=== PATIENT | male | born 1950 | race Caucasian/White ===

== ENCOUNTER 2017-01-21 22:54 | Observation (INO) | payer MEDICARE, BC ==
[2017-01-21] MEDS ORDERED: Aspirin Low Dose CHEW TAB* 81 MG PO ONE (23:03)
[2017-01-21 23:24] LABS: Hematocrit 44 % (42-52); Hemoglobin 14.8 g/dl (14.0-18.0); Mean Corpuscular HGB Conc 34 g/dl (31-36); Mean Corpuscular Hemoglobin 31 pg (27-31); Mean Corpuscular Volume 92 fL (80-94); Mean Platelet Volume 9 um3 (7.4-10.4); Red Blood Count 4.73 10^6/ul (4.0-5.4); Red Cell Distribution Width 13 % (10.5-15); White Blood Count 26.2 10^3/ul (3.5-10.8)
[2017-01-21 23:25] LABS: Add Diff/Slide Review? Slide Review Added; Comments Flag Yes
--- NOTE | 2017-01-21 23:28 | ED ---
Estella Gore Thomas, scribed for Jc Trinidad MD on 01/21/17 at 2324 . Syncope/Near Syncope - HPI Summary HPI Summary: Pt is a 66 y/o M BIBA c/o syncope. He did not have near-syncope prior to the syncopal episode and he denies a history of syncope. He additionally c/o hand pain and R foot pain. He denies CP, sensations of pressure and tightness. Per EMS, in the ambulance he had elevation and depression. He states that he didn t feel well all day. [employer] he took 350 mg of Trazodone. He takes many other medications. Per EMS and EMR, his PMHx includes occluded aortic valve, ankylosing spondylosis, LVH, HTN, RBBB, and sleeep apnea. - History Of Current Complaint Chief Complaint: EDChestPainROMI Time Seen by Provider: 01/21/17 23:00 Hx Obtained From: Patient, EMS Onset/Duration: Sudden Onset Context: Loss Of Consciousness Aggravating Factor(s): Nothing Alleviating Factor(s): Nothing Associated Signs And Symptoms: Other - POS: hand pain, R foot pain ;NEG: CP, sensation of presure or tightness - Allergies/Home Medications Allergies/Adverse Reactions: Allergies Allergy/AdvReac Type Severity Reaction Status Date / Time No Known Allergies Allergy Verified 09/02/16 08:36 Home Medications: Home Medications Atorvastatin* [Lipitor*] 20 mg PO DAILY 01/22/17 [History Confirmed 01/22/17] Metoprolol Succinate [Toprol Xl] 25 mg PO 01/22/17 [History] PMH/Surg Hx/FS Hx/Imm Hx Previously Healthy: No Cardiovascular History: Reports: Hx Hypertension - ON MEDICATION FOR GI History: Reports: Hx Gastroesophageal Reflux Disease - HX OF NONE SINCE 2006 , Hx Gastrointestinal Bleed, Hx Ulcer Musculoskeletal History: Reports: Other Musculoskeletal History - SPONDOLYTIS Sensory History: Reports: Hx Contacts or Glasses Denies: Hx Hearing Aid Opthamlomology History: Reports: Hx Contacts or Glasses - Surgical History Surgery Procedure, Year, and Place: 2 LEFT HAND SURGERIES. TONSILS. CORRECTIVE EYE SURGERY A CHILD. 2006- ECG- BLEEDING ULCER FOUND Hx Anesthesia Reactions: No Infectious Disease History: Denies: Traveled Outside the [place] in Last 30 Days - Family History Known Family History: Positive: Other - No Hx of syncope - Social History Alcohol Use: Occasionally Substance Use Type: Reports: None Smoking Status (MU): Unknown if Ever Smoked Amount Used/How Often: 3/4 PPD X 30 YEARS Have You Smoked in the Last Year: Yes Review of Systems Constitutional: Negative Eyes: Negative ENT: Negative Cardiovascular: Negative, Other - NEG: feelings of pressure or tightness Negative: Chest Pain Respiratory: Negative Gastrointestinal: Negative Genitourinary: Negative Positive: Other - POS: hand pain, R foot pain Skin: Negative Positive: Syncope - sudden, no near-syncope Psychological: Normal All Other Systems Reviewed And Are Negative: Yes Physical Exam Triage Information Reviewed: Yes Vital Signs On Initial Exam: Initial Vitals Temp Pulse Resp BP Pulse Ox 97.9 F 80 18 104/51 94 01/21/17 22:54 01/21/17 22:54 01/21/17 22:54 01/21/17 22:54 01/21/17 22:54 Vital Signs Reviewed: Yes Appearance: Positive: Ill-Appearing, Pain Distress - mild discomfort Skin: Positive: Warm Head/Face: Positive: Normal Head/Face Inspection Eyes: Positive: DEUCE ENT: Positive: Hearing grossly normal Respiratory/Lung Sounds: Positive: Clear to Auscultation, Breath Sounds Present Cardiovascular: Positive: RRR, Murmur - 3/6 harsh systolic murmur Abdomen Description: Positive: Nontender, Soft Bowel Sounds: Positive: Present Neurological: Positive: Alert, Oriented to Person Place, Time, Other - 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 Psychiatric: Positive: Affect/Mood Appropriate Diagnostics - Vital Signs Vital Signs Temp Pulse Resp BP Pulse Ox 01/21/17 23:20 65 26 104/51 100 01/21/17 23:08 69 97 01/21/17 22:54 97.9 F 80 18 104/51 94 - Laboratory Lab Results: Lab Results 01/21/17 Range/Units 23:00 WBC 26.2 H (3.5-10.8) 10^3/ul RBC 4.73 (4.0-5.4) 10^6/ul Hgb 14.8 (14.0-18.0) g/dl Hct 44 (42-52) % MCV 92 (80-94) fL MCH 31 (27-31) pg MCHC 34 (31-36) g/dl RDW 13 (10.5-15) % Plt Count 213 (150-450) 10^3/ul MPV 9 (7.4-10.4) um3 Neut % (Auto) 82.1 (38-83) % Lymph % (Auto) 7.4 L (25-47) % Loíza % (Auto) 7.6 (1-9) % Eos % (Auto) 2.5 (0-6) % Baso % (Auto) 0.4 (0-2) % Absolute Neuts (auto) 21.5 H (1.5-7.7) 10^3/ul Absolute Lymphs (auto) 1.9 (1.0-4.8) 10^3/ul Absolute Monos (auto) 2.0 H (0-0.8) 10^3/ul Absolute Eos (auto) 0.7 H (0-0.6) 10^3/ul Absolute Basos (auto) 0.1 (0-0.2) 10^3/ul Absolute Nucleated RBC 0.02 10^3/ul Nucleated RBC % 0.1 Result Diagrams: 01/21/17 23:00 01/21/17 23:00 Lab Statement: Any lab studies that have been ordered have been reviewed, and results considered in the medical decision making process. - Radiology CXR Xray Interpretation: Positive (See Comments) - cardiomegaly Radiology Interpretation Completed By: ED Physician - CT CT Head CT Interpretation: No Acute Changes - No mass effect or intracranial hemorrhage. CT Interpretation Completed By: Radiologist - EKG 23:03 Cardiac Rate: NL - 71 EKG Interpretation: SR. LVH. ST depressions Re-Evaluation - Re-Evaluation First Eval Comment: results d/w family, d/w hospitalist Course/Dx - Diagnoses Provider Diagnoses: Syncope - Physician Notifications Discussed Care of Patient With: Vinay Ramirez Time Discussed With Above Provider: 01:45 Instructed by Provider To: Admit As Inpatient - Discussed patient - Critical Care Time Critical Care Time: 75-104 min Discharge - Discharge Plan Condition: Fair Disposition: ADMITTED TO [facility] documentation as recorded by the Estella andrews Thomas accurately reflects the service I personally performed and the decisions made by me, Jc Trinidad MD.
[2017-01-21 23:32] LABS: Albumin 3.8 g/dL (3.2-5.2); BUN/Creatinine Ratio 23.8 (8-20); Calcium 9.7 mg/dL (8.6-10.3); EGFR African American 117.6 (>60); EGFR Non-African American 91.4 (>60); Globulin 2.6 g/dL (2-4); Magnesium 1.8 mg/dL (1.9-2.7); Potassium 3.4 mmol/L (3.5-5.0); Total Bilirubin 0.9 mg/dL (0.2-1.0); Total Protein 6.4 g/dL (6.4-8.9)
[2017-01-21 23:38] LABS: Troponin I 0.04 ng/mL (<0.04)
[2017-01-21] MEDS ORDERED: Iohexol 350* (CONTRAST) 500 ML MDV IV ONE (23:41)
[2017-01-22] MEDS ORDERED: traZODone TAB* 50 MG TAB PO PRN (01:43)
[2017-01-22] MEDS ORDERED: Cholecalciferol TAB* 1000 UNITS PO PRN (01:43)
[2017-01-22] MEDS ORDERED: NS 0.9% 1000 ML* 1,000 ML IV SCH ×2 (02:00→03:00)
[2017-01-22 03:50] LABS: Urine Bacteria Absent (Absent); Urine Bilirubin Negative (Negative); Urine Glucose Negative (Negative); Urine Nitrite Positive (Negative)
[2017-01-22] MEDS ORDERED: Heparin VIAL(*) 5000 UNITS/ML VIAL (FIVE THOUSAND) SUBCUT SCH (06:00)
[2017-01-22] MEDS ORDERED: Dexamethasone IV* 4 MG/ML 1 ML (4 MG) IV SLOW PU SCH (06:00)
[2017-01-22] MEDS: Morphine INJ* 2 MG/ML 1 ML SYRINGE IV PRN ×2 (06:42→11:03)
--- NOTE | 2017-01-22 07:45 | RAD ---
HISTORY: Syncope COMPARISONS: December 28, 2013 VIEWS:1: Single frontal portable view of the chest at 10:07 PM FINDINGS: LINES AND TUBES: None. CARDIOMEDIASTINAL SILHOUETTE: The cardiomediastinal silhouette is normal for portable technique. PLEURA: The costophrenic angles are sharp. No pleural abnormalities are noted. LUNG PARENCHYMA: The lungs are clear. ABDOMEN: The upper abdomen is clear. There is no subphrenic gas. BONES AND SOFT TISSUES: No bone or soft tissue abnormalities are noted. IMPRESSION: NO ACTIVE CARDIOPULMONARY DISEASE.
--- NOTE | 2017-01-22 07:47 | RAD ---
HISTORY: Weakness and numbness in right lower extremity COMPARISONS: None TECHNIQUE: Multiple contiguous axial CT scans were obtained of the head without intravenous contrast. Evaluation of the frontal sinuses and orbits is Limited by the [id number] FINDINGS: HEMORRHAGE/INFARCT: There is no hemorrhage or acute infarct. MASSES/SHIFT: There is no mass or shift. EXTRA-AXIAL SPACES: There are no extra-axial fluid collections. SULCI AND VENTRICLES: The sulci and ventricles are normal in size and position for the patient's stated age. CEREBRUM: There is mild hypoattenuation of the periventricular and subcortical white matter. BRAINSTEM: There are no focal parenchymal abnormalities. CEREBELLUM: There are no focal parenchymal abnormalities. VESSELS: The vessels are grossly normal. PARANASAL SINUSES: There is mixed retention cyst versus polypoid mucosal thickening of the right maxillary sinus. Evaluation of the frontal sinuses is limited by field of view ORBITS: Limited grossly normal BONES AND SOFT TISSUE: No bone or soft tissue abnormalities are noted. OTHER: None IMPRESSION: NO ACUTE INTRACRANIAL PATHOLOGY. CHRONIC SMALL VESSEL ISCHEMIC CHANGES.
--- NOTE | 2017-01-22 07:53 | RAD ---
HISTORY: Syncope, elevated d-dimer COMPARISONS: CT of the chest dated November 11, 2007 TECHNIQUE: Multiple contiguous axial CT scans of the chest were obtained after the administration of nonionic intravenous contrast, timed to the pulmonary arterial phase of contrast enhancement.. Coronal and sagittal multiplanar reformations are also submitted for review. FINDINGS: NECK AND THYROID: The lower neck and thyroid are unremarkable. CHEST WALL: There is no lower cervical, axillary, or supraclavicular lymphadenopathy by size criteria. HEART AND PERICARDIUM: The heart is unremarkable. AORTA AND PULMONARY VASCULATURE: There is no pulmonary arterial filling defect to suggest pulmonary embolism. There is no linear filling defect within the aorta to suggest aortic dissection. MEDIASTINUM: There is no mediastinal lymphadenopathy by size criteria. REN: There is no hilar lymphadenopathy by size criteria. AIRWAY AND ESOPHAGUS: There is circumferential mucosal thickening versus paraesophageal soft tissue density of the upper third of the esophagus LUNG PARENCHYMA: There is calcified granuloma of the right lower lobe. There is subsegmental atelectasis of the left lower lobe PLEURA: No pleural abnormalities are noted. UPPER ABDOMEN: The upper abdomen is unremarkable. BONES AND SOFT TISSUES: Degenerative changes are noted. There are findings consistent with tonsillitis. There is a fracture through C6-C7, further described on the CT of the cervical spine. There is a fracture through the inferior endplate of T9 extending into the intervertebral disc space at T9-T10 into the posterior elements of T9 with mild widening of the T9-T10 intervertebral disc space OTHER: None. IMPRESSION: 1. NO PULMONARY ARTERIAL FILLING DEFECT TO SUGGEST PULMONARY EMBOLUS. 2. NOTED ON THE CT OF THE CERVICAL SPINE, THERE IS A FRACTURE THROUGH C6-C7 FURTHER DESCRIBED ON THAT REPORT. 3. THERE ARE FINDINGS CYST WITH HYPEREXTENSION FRACTURE THROUGH T9-T10 DESCRIBED ABOVE. 4. ANKYLOSING SPONDYLITIS. 5. THERE IS FOCAL MUCOSAL THICKENING VERSUS PARAESOPHAGEAL SOFT TISSUE DENSITY OF THE UPPER THIRD ESOPHAGUS. THE DIFFERENTIAL INCLUDES NEOPLASM. RECOMMEND CONSIDERATION OF CORRELATION WITH DIRECT VISUALIZATION. A PRELIMINARY REPORT WAS MADE BY DR. CASEY AT APPROXIMATELY 12:52 AM ON JANUARY 22, 2017. FINDINGS WERE FURTHER DISCUSSED WITH DR. SOARES BY DR. GARCÍA AT APPROXIMATELY 7:49 AM ON JANUARY 22, 2017
[2017-01-22] MEDS ORDERED: ZOSYN 3.375 GM Q8H per EXTENDED INFUSION IVPB SCH ×2 (08:00)
[2017-01-22 08:37] LABS: Hematocrit 43 % (42-52); Hemoglobin 14.3 g/dl (14.0-18.0); Mean Corpuscular HGB Conc 34 g/dl (31-36); Mean Corpuscular Hemoglobin 31 pg (27-31); Mean Corpuscular Volume 93 fL (80-94); Mean Platelet Volume 8 um3 (7.4-10.4); Red Blood Count 4.59 10^6/ul (4.0-5.4); Red Cell Distribution Width 14 % (10.5-15); White Blood Count 23.7 10^3/ul (3.5-10.8)
--- NOTE | 2017-01-22 08:37 | RAD ---
HISTORY: Ankylosing Spondylitis, status post fall COMPARISONS: None TECHNIQUE: Multiple contiguous axial CT scans were obtained of the cervical spine without intravenous contrast, with coronal and sagittal multiplanar reformations. FINDINGS: BRAIN: The visualized brain is unremarkable CENTRAL CANAL: Evaluation is limited on CT technique; there is no appreciable canalicular mass. There is a probable small amount of epidural hemorrhage at the site of fracture described below ALIGNMENT: The alignment is normal, without subluxation or dislocation. VERTEBRAL BODIES: There is ossification of the anterior syndesmophytes consistent with the history of ankle is and spondylitis. There is a fracture that extends through the superior endplate and posterior elements of C7 with widening of the C6-C7 intervertebral disc space consistent with a hyperextension injury. The fracture also extends into the articular facet of C6 on the left JOINTS: There is partial fusion across the facet joints. There is osteoarthritis of the atlantoaxial articulation MUSCULATURE: Unremarkable INTERVERTEBRAL DISCS: There is diffuse loss of intervertebral disc height. AXIAL IMAGES: On axial images, there is no significant osseous neural foraminal narrowing or central canal stenosis. SOFT TISSUES: The visualized soft tissues of the neck are unremarkable. The prevertebral fat stripe is preserved. OTHER: None. IMPRESSION: FINDINGS CONSISTENT WITH ANKYLOSING SPONDYLOSIS. THERE IS A FRACTURE THAT EXTENDS THROUGH THE SUPERIOR ENDPLATE AND POSTERIOR LIPS OF C7, AND INTO THE ARTICULAR FACET OF C6, WITH WIDENING OF INTERVERTEBRAL DISC SPACE WITH HYPEREXTENSION INJURY. THERE IS A SMALL AMOUNT OF EPIDURAL HEMORRHAGE AT THIS LEVEL PRELIMINARY FINDINGS WERE DISCUSSED WITH DR. VILLATORO, BY DR. CASEY AT APPROXIMATELY 3:54 AM ON JANUARY 22, 2017. FINDINGS WERE FURTHER DISCUSSED WITH DR. MARROQUIN BY DR. GARCÍA AT APPROXIMATELY 8:31 AM ON JANUARY 22, 2017.
[2017-01-22 08:40] LABS: Add Diff/Slide Review? Slide Review Added; Comments Flag Yes
[2017-01-22 08:52] LABS: BUN/Creatinine Ratio 21.5 (8-20); Calcium 9.3 mg/dL (8.6-10.3); EGFR African American 126.2 (>60); EGFR Non-African American 98.1 (>60); Potassium 3.9 mmol/L (3.5-5.0)
[2017-01-22] MEDS ORDERED: Atorvastatin* 20 MG TAB PO SCH (09:00)
[2017-01-22] MEDS ORDERED: Hydrochlorothiazide TAB* 25 MG PO SCH (09:00)
[2017-01-22] MEDS ORDERED: Diltiazem CD CAP* 180 MG PO SCH (09:00)
[2017-01-22] MEDS ORDERED: Metoprolol Succinate XL TAB* 25 MG PO SCH (09:00)
[2017-01-22] MEDS ORDERED: Losartan TAB* 25 MG PO SCH (09:00)
[2017-01-22 09:06] LABS: Troponin I 0.04 ng/mL (<0.04)
[2017-01-22 11:33] VITALS: BP 141/65
--- NOTE | 2017-01-22 23:40 | HP ---
CC: Yony Denney MD* HISTORY AND PHYSICAL: DATE OF ADMISSION: 01/22/17 PRIMARY CARE PHYSICIAN: Yony Denney MD CHIEF COMPLAINT: "I fell and passed out." HISTORY OF PRESENT ILLNESS: The patient is a 66-year-old gentleman who presented to [facility] saying that he was feeling poorly all day. He said he had to urinate many times in the day and was painful. When he tried to urinate, only few drops came out. Furthermore, he was incontinent about twice. He went home, took trazodone to help him sleep and about 10 minutes later, he passed out, fell backwards and hit his head. He felt his neck snap and it heard after that. Now he says his right side is very weak. He has trouble using his hands to grasp and his right leg and right arm are numb. He has never had this before despite falling on it before. His sons also think he has slurred speech at this time. In the ER, the patient was evaluated. A CAT scan was negative and a CTA for PE was negative. We did put a cervical collar on the patient as well. Before he went to the floor, he had a CAT scan of his neck, which unfortunately did show a fracture of the calcified anterior longitudinal ligament. The patient was already admitted and we are attempting to transfer the patient based on our conversation with Dr. Quinn, [facility]. PAST MEDICAL HISTORY: Significant for hypertension, ankylosing spondylitis, spermatocele, basal cell carcinoma, squamous cell carcinoma, right bundle- branch block, obstructive sleep apnea but did not tolerate the CPAP. CURRENT MEDICATIONS: Include: 1. Lipitor 20 mg daily. 2. Hydrochlorothiazide 25 mg daily. 3. Diltiazem 360 mg daily. 4. Cholecalciferol 5000 units daily. 5. Trazodone 50 mg at bedtime. 6. Cialis 20 mg daily as needed. 7. Losartan 100 mg daily. 8. Metoprolol succinate 25 mg p.o. daily. FAMILY HISTORY: Mother at 64 of cancer. Father at 58 of liver cancer. SOCIAL HISTORY: He smokes half a pack to 1 pack a day for many years. No alcohol or recreational drug use. 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 He is . He has 3 children. His , Kim Rader is his healthcare proxy. REVIEW OF SYSTEMS: A 14-point review of systems was completed with the patient. All pertinent positives and negative are in the history of present illness, otherwise it is negative. PHYSICAL EXAMINATION GENERAL: Pleasant gentleman lying in bed, in no acute distress. VITAL SIGNS: Temperature 97.8 degrees, heart rate 72 beats per minute, respiratory rate 25 breaths per minute, pulse ox 98%, blood pressure 129/81. HEENT: Normocephalic and atraumatic. Pupils are equal, round and reactive to light. NECK: The patient does not want to move it because it is quite painful. CHEST: Clear to auscultation and percussion bilaterally. CARDIOVASCULAR: S1, S2 appreciated. A 3/6 systolic murmur best heard at the right sternal border. ABDOMEN: Positive bowel sounds in all 4 quadrants. Soft, nontender, nondistended. EXTREMITIES: No cyanosis, clubbing, or edema. +2 pulse bilaterally. NEUROLOGIC: He is alert and oriented x3. He has got 2/5 motor strength in his right upper extremity, 4/5 motor strength in his right lower extremity. He has got poor hand grasp. He has no evidence of facial droop. He has got no pronator drift. SKIN: No distinct rashes. No abnormalities. DIAGNOSTIC STUDIES/LAB DATA: White count 26.2, hemoglobin 14.8, hematocrit 44 , and platelets 213. Sodium 131, potassium 3.4, chloride 101, CO2 26, BUN 20, creatinine 0.84, glucose 139. Troponin 0.04. D-dimer is greater than 150. Urinalysis shows +3 wbc's, +2 leukocyte esterase. His chest x-ray was interpreted by Radiology as no active cardiopulmonary disease. His brain CT was interpreted by Radiology as, impression, no acute intracranial pathology, chronic small vessel ischemic changes. CTA of the chest shows no pulmonary artery dissection or pulmonary embolus is noted. CT of the cervical spine, there is fracture through C6-C7 further described in this report. There are findings consistent with hyperextension fracture through T9-T10 as described above, ankylosing spondylitis. There is focal mucosal thickening versus paraesophageal soft tissue density of the upper third of the esophagus. Differential includes neoplasm, recommended consideration of correlation with flexible visualization. Cervical spine CT, the night radiologist read this as ankylosing spondylitis fracture, the calcified anterior longitudinal ligament of C6-C7 with widening of the anterior disk space consistent with hyperextension injury, nondisplaced fracture throughout the articular facet of C6 on the left. EKG shows normal sinus rhythm at 71 beats per minute. Normal axis. He has got ST depressions in V5 and V6. ST elevations in V2 through V4. ASSESSMENT AND PLAN: 1. Cervical spine fracture. I spoke to Dr. Quinn who reviewed with films and agreed the patient needed to go a center that could provide more resources than his. Therefore, I am attempting to transfer the patient to [facility]. We also started the patient on Decadron 4 mg IV q.6 as well as morphine for pain. He will continue to have the cervical collar and be on bedrest. 2. Prostatitis/urinary tract infection. The patient is on Zosyn. White count was over 26,000, but he is afebrile. Monitor CBC and culture results. 3. Ankylosing spondylitis, see above. Not currently on any regular medications for this. Monitor. 4. Hypertension, good control. Continue current regimen. 5. Thickening of the esophagus on CAT scan that should be followed up by endoscopy, but does not needed to be adjusted immediately. 6. FEN: NPO in case of surgery. 7. DVT prophylaxis: Currently on heparin. 8. The patient is a full code. TIME SPENT: Over 75 minutes was spent on this H and P, more than 40 minutes of which was spent in direct [id number] contact with the patient in evaluation, physical exam, counseling, and coordination of care. ADDENDUM: I spoke to Dr. Payton at [facility] who is accepting the patient to the hospitalist service with "Dr. Mancilla" of Orthopedic Spine consulting. [id number]/[facility] #: [id number] [facility]
== END 2017-01-22 11:30 | disposition short-term general hospital (02) ==
LOC: ED 22:54 → MEDTELE 01-22 01:58
PROVIDERS: ADMIT Internal Medicine; ATTEND Hospitalist
DX: R55 Syncope and collapse (principal); I10 Essential (primary) hypertension; G47.33 Obstructive sleep apnea (adult) (pediatric); F17.200 Nicotine dependence, unspecified, uncomplicated; M79.643 Pain in unspecified hand; M79.671 Pain in right foot; M45.9 Ankylosing spondylitis of unspecified sites in spine
CPT/HCPCS: 36415; 70450; 71010; 71275; 72125; 80048; 80053; 81003; 81015; 82550; 82553; 83605; 83721; 83735; 83874; 83880; 84484; 85025; 85379; 85610; 85730; 86850; 86900; 86901; 87077; 87086; 87186; 93005; 99285; A9270-GY; G0378; J1100; J1644; J2270; J2543; Q9967

== ENCOUNTER 2017-01-27 11:27 | Inpatient (IN) | payer MEDICARE, BC ==
[2017-01-27] MEDS ORDERED: Magnesium Hydroxide LIQ* 30 ML UDC PO PRN (16:42)
[2017-01-27] MEDS ORDERED: Senna TAB PO PRN (16:42)
[2017-01-27] MEDS: Cephalexin CAP* 500 MG PO SCH (17:24)
[2017-01-27] MEDS: Atorvastatin* 20 MG TAB PO SCH (17:24)
[2017-01-27] MEDS: Losartan TAB* 25 MG PO SCH (17:24)
[2017-01-27] MEDS: oxyCODONE TAB* 5 MG TAB PO PRN (20:53)
[2017-01-27] MEDS: Docusate CAP* 100 MG PO SCH (20:53)
--- NOTE | 2017-01-27 22:58 | HP ---
ADMISSION HISTORY AND PHYSICAL: DATE OF ADMISSION: 01/27/17 REASON FOR ADMISSION: Central cord syndrome. HISTORY OF PRESENT ILLNESS: Dalton Rader is a 66-year-old male. The patient has a known history of ankylosing spondylitis as well as hypertension. He was not feeling well on 01/21/17. Apparently, he had a urinary tract infection. To help him sleep, he took 2 trazodone. However, the patient following the trazodone apparently had a syncopal event and fell to the floor. He was found on the floor by his . She called 911 and he was brought to the hospital. He was initially evaluated and a decision was made to admit the patient. He had a CAT scan of his brain as well as a CTA of his chest. After admission, the patient was noted to have had a CAT scan of his cervical spine. The CAT scan of his cervical spine showed a nondisplaced fracture of the right articular facet of C6. He was found to have right hand weakness. He was put in a cervical collar. Decision was made to transfer the patient to [facility] for surgical evaluation. He was evaluated by the orthopedic spine service. He was taken to the operating room on 01/22/17 for a posterior spinal fusion of C5 through T1. He was treated with Zosyn for his urinary tract infection and then transitioned to Augmentin. Prior to going to the OR, the patient did have an MRI of his cervical spine as well as his thoracic spine. On MRI of his cervical spine, he was noted to have an anterior epidural hematoma formation through beneath the posterior longitudinal ligament extending from C5 to C7. The spinal cord showed hyperintense signal intensity suggestive of cord contusion. He was also noted to have a disruption on MRI of his thoracic spine. He was noted to have disruption of the ossified anterior longitudinal ligament at T9-10. The patient, as mentioned, was taken to the operating room and underwent a posterior spinal fusion from C5 to T1. He also underwent a posterior fixation of the spine at T8 through T11. Postoperatively, the orthopedic spine service did not want him on chemo prophylaxis due to his hematoma noted on MRI. The patient had right-sided weakness, more significant in the arm than in the leg. He was diagnosed with central cord syndrome. He was felt to have physical therapy and occupational therapy needs. He is now being admitted for inpatient rehab facility so that he might return to independent living. PAST MEDICAL HISTORY: Significant for coronary artery disease. He had a cardiac catheterization in August of this year. He was noted to have aortic stenosis. In addition, he was noted to have total occlusion of the right coronary artery. He was not stented because there were collaterals from the left circulation, so it was felt that he did not need to be stented. The patient also has a history of ankylosing spondylitis. He has a history of COPD , history of hypertension, and obstructive sleep apnea. He wears a CPAP at night. CURRENT MEDICATIONS: Include: 1. Lipitor. 2. Cardizem CD. 3. He is on hydrochlorothiazide. 4. Cozaar. 5. Toprol XL. 6. Oxycodone for pain control. 7. He is also on Keflex for his urinary tract infection. ALLERGIES: The patient has no known drug allergies. SOCIAL HISTORY: He does continue to smoke. He smokes half a pack a day. Denies any significant alcohol use. Lives with his in a 2-story house. He can stay on the first floor if he needs to. REVIEW OF SYSTEMS: No current shortness of breath or chest pain. PHYSICAL EXAMINATION VITAL SIGNS: The patient's temperature is 98.6, blood pressure is 128/52, pulse 71, respirations 16. HEENT: His extraocular movements are intact. NECK: He has a bandage over his suture line on the back of his neck. LUNGS: Sound clear to auscultation bilaterally. HEART: Sounds are regular. S1, S2 are audible. ABDOMEN: Soft and nontender. EXTREMITIES: His extremities, the patient has somewhat decreased muscle tone in his right upper extremity; otherwise, muscle bulk and tone are normal. His peripheral pulses are intact. No edema is noted. NEUROLOGIC: The patient was awake, alert, oriented. He did have decreased recall of the events regarding his fall. 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 The patient's biceps is about 3+/5, triceps are about 5/5, deltoids are about 4/5. His right lower extremity, hip flexes about 4/5, otherwise 5/5, left side is 5/5. FUNCTIONAL EXAM: The patient transfers with minimal amount of assistance. ASSESSMENT: Central cord syndrome/C5 MORAIMA D Spinal Cord Injury PLAN: We are going to integrate him into comprehensive and therapeutic rehab program with the following goals: 1. Physical Therapy will work with the patient. They are going to work on functional transfer training, ambulation training with a walker. 2. Occupational Therapy will see the patient and work on his activities of daily living including toileting and toilet transfers. 3. SUSANNA stockings for DVT prophylaxis. 4. Adequate analgesia. 5. His bowels will be regulated. 6. Continue beta-sonya and Cardizem for coronary artery disease and aortic stenosis. 7. Advanced directives: The patient is a full code. 8. Family training as appropriate. 9. Home with appropriate services. ESTIMATED LENGTH OF STAY: 10 to 12 days. [id number]/[facility] #: [id number] JYOTSNA
[2017-01-27] MEDS: Acetaminophen TAB* 325 MG PO PRN (23:34)
[2017-01-28] MEDS: oxyCODONE TAB* 5 MG TAB PO PRN ×4 (01:02→19:19)
[2017-01-28] MEDS: Cephalexin CAP* 500 MG PO SCH ×3 (01:02→17:06)
[2017-01-28] MEDS: Hydrochlorothiazide TAB* 25 MG PO SCH (08:05)
[2017-01-28] MEDS: Metoprolol Succinate XL TAB* 25 MG PO SCH (08:05)
[2017-01-28] MEDS: Docusate CAP* 100 MG PO SCH ×2 (08:06→21:33)
[2017-01-28] MEDS: Diltiazem CD CAP* 180 MG PO SCH (08:06)
[2017-01-28 08:46] LABS: Hematocrit 37 % (42-52); Hemoglobin 12.3 g/dl (14.0-18.0); Mean Corpuscular HGB Conc 33 g/dl (31-36); Mean Corpuscular Hemoglobin 31 pg (27-31); Mean Corpuscular Volume 94 fL (80-94); Mean Platelet Volume 8 um3 (7.4-10.4); Red Blood Count 3.92 10^6/ul (4.0-5.4); Red Cell Distribution Width 13 % (10.5-15); White Blood Count 22.2 10^3/ul (3.5-10.8)
[2017-01-28 09:02] LABS: Albumin 3.3 g/dL (3.2-5.2); BUN/Creatinine Ratio 21.6 (8-20); Calcium 9.6 mg/dL (8.6-10.3); EGFR African American 136.1 (>60); EGFR Non-African American 105.8 (>60); Globulin 2.5 g/dL (2-4); Potassium 4.1 mmol/L (3.5-5.0); Total Bilirubin 0.8 mg/dL (0.2-1.0); Total Protein 5.8 g/dL (6.4-8.9)
--- NOTE | 2017-01-28 12:07 | RAD ---
HISTORY: Leukocytosis COMPARISONS: January 21, 2017 VIEWS: 4: Frontal dual-energy and lateral views of the chest. FINDINGS: CARDIOMEDIASTINAL SILHOUETTE: The cardiomediastinal silhouette is normal. REN: The ren are normal. PLEURA: There is minimal blunting of the right costophrenic angle. LUNG PARENCHYMA: There is hyperinflation ABDOMEN: The upper abdomen is clear. There is no subphrenic gas. BONES AND SOFT TISSUES: There is post surgical change of the spine OTHER: None. IMPRESSION: 1. TRACE RIGHT PLEURAL EFFUSION. 2. HYPERINFLATION SUGGESTIVE OF COPD.
--- NOTE | 2017-01-28 12:08 | CONSULT ---
Subjective Date of Service: 01/28/17 Interval History: Mr. Rader is a 66 yo male who sustained a fall on 01/21/17 secondary to a syncopal episode; patient also had a UTI that was noted. A CT scan of the cervical spine revealed a nondisplaced fx of the right articular facet of C6; patient had accompanying right hand weakness. He was transferred to [facility] and underwent a posterior spinal fusion of C5 through T1 as well as a posterior fixation of the spine at T8 through T11 (ossified anterior longitudinal ligament seen at T9-10 on MRI). He received treatment for his UTI with Zosyn and then Augmentin. Patient did not receive DVT prophylaxis secondary to anterior epidural hematoma formation. Patient had residual right sided weakness and was diagnosed with central cord syndrome; he was transferred back to [facility] for PT/OT rehab. Mr. Rader observed ambulating with walker from bathroom to chair. He is tolerating activity with no visible dyspnea or distress. He endorses insomnia and "feeling bored" as he usually stays very busy. He denies any recent fever/ chills, CP, SOB, abd pain, n/v/d. He denies dysuria but reports noticing some "release of air" after he urinates. He does feel as if he completely empties his bladder and denies urinary frequency or hesitancy. He reports seeing a urologist yearly for prostate examination and has not previously been diagnosed with any prostate problems. He reports good pain control for his cervical and thoracic spinal sites and states, "I usually need to take it every morning in order to be able to function." He has no acute concerns and states that "my white blood cells are always up." He asks if we can contact Dr. Denney's office and states he saw Dr. Landaverde "many years ago" and nothing further came of this. Patient has been on Zosyn, Augmentin, and now cephalexin. No reported drainage when surgical sites examined by [facility] team this morning. Family History: Findings - Mother of cancer, father of liver cancer Social History: Findings - Current smoker, 1/2-1 ppd; denies EOTH use, , has 3 children Past Medical History: Findings - CAD with RCA occlusion (no stent secondary to collateral vessels), aortic stenosis, ankylosing spondylitis, COPD, HTN, RBBB, HEATHER Review of Systems - Measurements Intake and Output: Intake and Output Last 24 Hours 01/26/17 01/27/17 01/28/17 01/29/17 06:59 06:59 06:59 06:59 Intake Total 240 360 Balance 240 360 Weight 180 lb Intake: Oral 240 360 Other: Estimated Void Medium # Voids 1 - Review of Systems Constitutional Symptoms: Positive: Weakness, Fatigue Negative: Fever, Night Sweats Dermatology: Negative: Rash HEENT: Positive: Normal Negative: Change in Hearing, Vertigo, Tinnitus Eyes: Positive: Normal Negative: Change in Vision, Double Vision, Eye Pain Pulmonary: Positive: COPD Negative: Cough, Hemoptysis, Wheezing, Respiratory Distress, Shortness of Breath Cardiology: Negative: Chest Pain, Shortness of Breath, Palpitations, Swelling of Ankles, Edema, Orthopnoea Gastroenterology: Negative: Abdominal Pain, Nausea, Vomiting, Diarrhea Genital - Urinary: Negative: Dysuria, Hematuria, Polyuria Musculoskeletal: Positive: Other - cervical and thoracic spine surgeries Hematologic/Lymphatic: Positive: Other - chronic leukocytosis Neurology: Positive: Numbness\\Paresthesiae Negative: Headache, Change in Vision Objective Active Medications: Acetaminophen (Tylenol Tab*) 650 mg PO Q6H PRN PRN Reason: FEVER/PAIN Last Admin: 01/27/17 23:34 Dose: 650 mg Atorvastatin Calcium (Lipitor*) 20 mg PO 1700 [facility] Last Admin: 01/27/17 17:24 Dose: 20 mg Cephalexin HCl (Keflex Cap*) 500 mg PO Q8H [facility] Stop: 02/01/17 09:59 Last Admin: 01/28/17 08:05 Dose: 500 mg Diltiazem HCl (Cardizem Cd Cap*) 360 mg PO DAILY [facility] Last Admin: 01/28/17 08:06 Dose: 360 mg Docusate Sodium (Colace Cap*) 100 mg PO BID [facility] Last Admin: 01/28/17 08:06 Dose: 100 mg Hydrochlorothiazide (Hydrodiuril Tab*) 25 mg PO DAILY [facility] Last Admin: 01/28/17 08:05 Dose: 25 mg Losartan Potassium (Cozaar Tab*) 100 mg PO Q24H [facility] Last Admin: 01/27/17 17:24 Dose: 100 mg Magnesium Hydroxide (Milk Of Magnesia Liq*) 30 ml PO Q6H PRN PRN Reason: CONSTIPATION Metoprolol Succinate (Toprol Xl Tab*) 25 mg PO DAILY [facility] Last Admin: 01/28/17 08:05 Dose: 25 mg Oxycodone HCl (Roxycodone Tab*) 5 mg PO Q4H PRN PRN Reason: PAIN - MODERATE TO SEVERE Last Admin: 01/28/17 05:47 Dose: 5 mg Senna (Senokot Tab*) 2 tab PO BEDTIME PRN PRN Reason: CONSTIPATION Vital Signs 01/27/17 01/27/17 01/27/17 15:43 17:25 20:00 Temperature 98.6 F Pulse Rate 71 Respiratory 16 18 Rate Blood Pressure 128/52 (mmHg) O2 Sat by Pulse 97 97 Oximetry 01/27/17 01/27/17 01/27/17 20:53 22:37 22:53 Temperature Pulse Rate Respiratory 18 18 18 Rate Blood Pressure (mmHg) O2 Sat by Pulse Oximetry 01/27/17 01/28/17 01/28/17 23:34 00:06 01:02 Temperature 98.2 F Pulse Rate 79 Respiratory 20 17 16 Rate Blood Pressure 148/65 (mmHg) O2 Sat by Pulse 98 Oximetry 01/28/17 01/28/17 01/28/17 03:02 05:05 05:47 Temperature 98.2 F Pulse Rate 74 Respiratory 16 15 16 Rate Blood Pressure 153/68 (mmHg) O2 Sat by Pulse 98 Oximetry 01/28/17 01/28/17 07:47 08:00 Temperature Pulse Rate Respiratory 18 18 Rate Blood Pressure (mmHg) O2 Sat by Pulse Oximetry Oxygen Devices in Use Now: None Appearance: Middle aged male, pleasant, cooperative, talking in full sentences, in no acute distress Eyes: No Scleral Icterus Ears/Nose/Mouth/Throat: Mucous Membranes Moist Neck: NL Appearance and Movements; NL JVP Respiratory: Symmetrical Chest Expansion and Respiratory Effort, Clear to Auscultation Cardiovascular: RRR - systolic murmur 3/6 Abdominal: NL Sounds; No Tenderness; No Distention Lymphatic: No Cervical Adenopathy, No Auricular Adenopathy Extremities: No Edema Skin: - - dressings to cervical and thoracic spine with old drainage but otherwise intact Neurological: Alert and Oriented x 3, - Lines/Tubes/Other Access: Clean, Dry and Intact Peripheral IV Nutrition: Taking PO's Result Diagrams: 01/28/17 08:35 01/28/17 08:35 Additional Lab and Data: Urine culture - E. coli growth, 20,000 colony growth from [facility] Diagnostic Imaging: CXR - trace right pleural effusion, hyperinflation Assessment/Plan - Billing This is a 66 yo male with a PMH significant for CAD, , ankylosing spondylitis , COPD, HTN, RBBB, and HEATHER who recently sustained a fall secondary to syncopal episode and was transferred to [facility] for surgical correction of C-spine fracture and had subsequent central cord syndrome. He has been transferred to [facility] for further PT/OT needs prior to d/c home, now with concern for elevated WBC. Plan By Medical Problem: 1. Central cord syndrome - secondary to nondisplaced fx of the right articular facet of C6 s/p posterior spinal fusion of C5 through T1 and posterior fixation of the spine at T8 through T11 (ossified anterior longitudinal ligament seen at T9-10 on MRI). Continue PT/OT. Pain management. Management per PMRU 2. Leukocytosis - there is evidence of chronicity, as the patient has seen hematology in 2007 and 2011 for chronic leukocytosis. Patient negative for CML and DAREN-2 mutation. Baseline appears to be in the teens, suspect that recent surgery and UTI may be the cause of persistent elevation. However, agree with evaluating for other sources of infection. CRP will likely be elevated in presence of recent surgery but may be helpful to trend. Will add on to previous labs. Continue to follow CBC and monitor closely for accompanying anemia or thrombocytopenia. No current s/s of acute infection. 3. CAD - continue statin and beta sonya. 4. COPD - appears stable. No s/s wheezing, resp distress, good aeration. Not on chronic inhalers, no O2 supplementation required. 5. HTN - mildly HTN, suspect pain component. Continue metoprolol and diltiazem. 6. HEATHER - Continue CPAP use. 7. Insomnia - patient may benefit from restarting home prn trazodone if okay with physiatry team. 8. UTI - Patient appears to have been fully treated for E. coli UTI with Zosyn , Augmentin, and cephalexin. VTE PPX: Patient with spinal hematoma, anticoagulation contraindicated. Continue TEDs Diet: Regular diet Code Status: Full code Admission Status and Rationale: RU admission. Dispo per physiatry team. Thank you for this consultation. We will follow up on lab work. Please call if any other acute concerns. Counseling and/or Coordination of Care Minutes: 60
--- NOTE | 2017-01-28 12:42 | PMRUTEAM ---
PMRU: Goals Current Status: Nursing: Current Status Skin Deviations [Back] Incision Physical Therapy: Current Status Bed Mobility Assistance min A Transfer Moblility Assistance CGA with platform walker Ambulation Assistance CGA 150ft with rolling walker Occupational Therapy: Current Status Upper Body Dressing Contact Guard Assist Lower Body Dressing Mod Assist Bathing Min Assist Toileting Contact Guard Assist Toilet Transfer Min Assist Shower Transfer Min Assist Eating Ind with Adaptive Equip Social Work: Current Status Discharge Plan return home with home care svs and family support Potential for Family Training pt's is involved and supportive Anticipated Discharge Home Destination Discharge With return home with home care svs and family support Goals: PHYSICAL THERAPY GOALS: independent bed mobility, transfers with platform walker and ambulation with platform walker 150ft. 5 stairs with 1 rail. Occupational Therapy: Initial Goals Goals to be Completed in (Days 7-10 ) Upper Body Bathing Routine Independent Lower Body Bathing Routine Independent Upper Body Dressing Routine Independent Lower Body Dressing Routine Independent Toilet Hygeine and Clothing Independent Management Routine Toilet Transfer Routine Independent Step-In Shower Transfer Independent Routine Tub Transfer Routine Independent Functional Transfers for ADL Independent Grooming Routine Independent Feeding Routine Modified Independent with Feeding Assistive Devices built up handles Social Work: Goals Discharge Plan return home with home care svs and family support Potential for Family Training pt's is involved and supportive Anticipated Discharge Home Destination Discharge With return home with home care svs and family support Care Plan: Care Plan ADL's - Improve/Maintain Start: 01/28/17 11:43 Freq: DAILY Status: Active Target: Activity Type Activity Date Activity User E-Sign Co-Sign Detail Recorded Client Recorded Date Recorded By Document 01/28/17 11:43 [id number] 01/28/17 11:45 [id number] 01/28/17 11:43 PMRU Outcome: ADL's/ADL Transfers Orders/Interventions Occupational Therapy Evaluation & Treatment Communication Tool in Patient Room Device Yes: Platform walker Address Deficits Secondary To: R UE weakness; central cord syndrome Patient to receive OT 5x/wk for 60-120 Therex min/day Self Care Management Group Therapy Neuromuscular ReEducation UE/LE ADL's with Assist Yes ADL Transfers with Assist Yes Toileting: Transfers,Clothing Management Yes ,Hygeine w/Assist Light Kitchen/Laundry w/Assist Yes Progression Toward Outcome/Goals Progressing Outcome/Goals Met Pt assessed and completed AM self care tasks . At baseline, pt is IND with ADLs. He demonstrates with a decrease in all ADL task performance. Pt would benefit from skilled service to increase R UE functioning and overall ADL completion. Medicine Note: Length of Stay: [1 week] Anticipated Discharge Destination: Home Tentative Discharge Date: [02/04/17] Discharged to: [home]
[2017-01-28] MEDS: Atorvastatin* 20 MG TAB PO SCH (17:10)
[2017-01-28 17:11] LABS: C Reactive Protein 92.18 mg/L (< 5.00)
[2017-01-28 17:43] LABS: Urine Bilirubin Negative (Negative); Urine Glucose Negative (Negative); Urine Nitrite Negative (Negative)
[2017-01-28] MEDS: Losartan TAB* 25 MG PO SCH (18:42)
[2017-01-29] MEDS: oxyCODONE TAB* 5 MG TAB PO PRN ×3 (00:13→20:01)
[2017-01-29] MEDS: Cephalexin CAP* 500 MG PO SCH ×3 (00:37→17:13)
[2017-01-29] MEDS: Acetaminophen TAB* 325 MG PO PRN ×2 (03:47→12:36)
[2017-01-29 07:04] LABS: Hematocrit 35 % (42-52); Hemoglobin 11.9 g/dl (14.0-18.0); Mean Corpuscular HGB Conc 34 g/dl (31-36); Mean Corpuscular Hemoglobin 32 pg (27-31); Mean Corpuscular Volume 95 fL (80-94); Mean Platelet Volume 9 um3 (7.4-10.4); Red Blood Count 3.69 10^6/ul (4.0-5.4); Red Cell Distribution Width 14 % (10.5-15); White Blood Count 17.9 10^3/ul (3.5-10.8)
[2017-01-29 07:13] LABS: BUN/Creatinine Ratio 22.9 (8-20); C Reactive Protein 73.55 mg/L (< 5.00); Calcium 9.9 mg/dL (8.6-10.3); EGFR African American 145.1 (>60); EGFR Non-African American 112.8 (>60); Potassium 3.8 mmol/L (3.5-5.0)
[2017-01-29] MEDS: Docusate CAP* 100 MG PO SCH ×2 (08:00→20:01)
[2017-01-29] MEDS: Hydrochlorothiazide TAB* 25 MG PO SCH (08:00)
[2017-01-29] MEDS: Metoprolol Succinate XL TAB* 25 MG PO SCH (08:00)
[2017-01-29] MEDS: Diltiazem CD CAP* 180 MG PO SCH (08:00)
--- NOTE | 2017-01-29 16:24 | CONSULT ---
Subjective Date of Service: 01/29/17 Interval History: Seen and examined with at bedside Just came back from outside Notes resolution of dysuria and hesitancy present on dx of his UTI Noted what he thought were "bubbles" in his urine yesterday. He did not see bubbles but notes he can hear them Pain well controlled Family History: Findings - Mother of cancer, father of liver cancer Social History: Findings - Current smoker, 1/2-1 ppd; denies EOTH use, , has 3 children Past Medical History: Findings - CAD with RCA occlusion (no stent secondary to collateral vessels), aortic stenosis, ankylosing spondylitis, COPD, HTN, RBBB, HEATHER Review of Systems - Measurements Intake and Output: Intake and Output Last 24 Hours 01/27/17 01/28/17 01/29/17 01/30/17 11:59 11:59 11:59 11:59 Intake Total 600 960 360 Output Total 300 Balance 600 660 360 Weight 81.647 kg Intake: Oral 600 960 360 Output: Urine 300 Other: Estimated Void Medium Medium Medium # Voids 1 1 1 Objective Active Medications: Acetaminophen (Tylenol Tab*) 650 mg PO Q6H PRN PRN Reason: FEVER/PAIN Last Admin: 01/29/17 12:36 Dose: 650 mg Atorvastatin Calcium (Lipitor*) 20 mg PO 1700 [facility] Last Admin: 01/28/17 17:10 Dose: 20 mg Cephalexin HCl (Keflex Cap*) 500 mg PO Q8H [facility] Stop: 02/01/17 09:59 Last Admin: 01/29/17 08:00 Dose: 500 mg Diltiazem HCl (Cardizem Cd Cap*) 360 mg PO DAILY [facility] Last Admin: 01/29/17 08:00 Dose: 360 mg Docusate Sodium (Colace Cap*) 100 mg PO BID [facility] Last Admin: 01/29/17 08:00 Dose: 100 mg Hydrochlorothiazide (Hydrodiuril Tab*) 25 mg PO DAILY [facility] Last Admin: 01/29/17 08:00 Dose: 25 mg Losartan Potassium (Cozaar Tab*) 100 mg PO Q24H [facility] Last Admin: 01/28/17 18:42 Dose: 100 mg Magnesium Hydroxide (Milk Of Magnesia Liq*) 30 ml PO Q6H PRN PRN Reason: CONSTIPATION Metoprolol Succinate (Toprol Xl Tab*) 25 mg PO DAILY [facility] Last Admin: 01/29/17 08:00 Dose: 25 mg Oxycodone HCl (Roxycodone Tab*) 5 mg PO Q4H PRN PRN Reason: PAIN - MODERATE TO SEVERE Last Admin: 01/29/17 04:14 Dose: 5 mg Senna (Senokot Tab*) 2 tab PO BEDTIME PRN PRN Reason: CONSTIPATION Vital Signs 01/28/17 01/28/17 01/28/17 17:23 19:14 19:19 Temperature Pulse Rate Respiratory 20 18 Rate Blood Pressure (mmHg) O2 Sat by Pulse 100 Oximetry 01/28/17 01/28/17 01/29/17 21:19 23:45 00:13 Temperature 98.4 F Pulse Rate 71 Respiratory 18 17 18 Rate Blood Pressure 149/62 (mmHg) O2 Sat by Pulse 98 Oximetry 01/29/17 01/29/17 01/29/17 02:13 04:14 05:10 Temperature 98.0 F Pulse Rate 67 Respiratory 16 18 20 Rate Blood Pressure 140/63 (mmHg) O2 Sat by Pulse 100 Oximetry 01/29/17 01/29/17 01/29/17 06:10 08:00 12:38 Temperature Pulse Rate Respiratory 16 18 Rate Blood Pressure (mmHg) O2 Sat by Pulse 100 Oximetry 01/29/17 15:59 Temperature 97.6 F Pulse Rate 68 Respiratory 20 Rate Blood Pressure 116/59 (mmHg) O2 Sat by Pulse 99 Oximetry Oxygen Devices in Use Now: None Appearance: sitting in chair, NAD Eyes: No Scleral Icterus, PERRLA Ears/Nose/Mouth/Throat: Clear Oropharnyx, Mucous Membranes Moist Neck: NL Appearance and Movements; NL JVP, Trachea Midline Respiratory: Symmetrical Chest Expansion and Respiratory Effort, Clear to Auscultation Cardiovascular: RRR Abdominal: NL Sounds; No Tenderness; No Distention, No Hepatosplenomegaly Lymphatic: No Cervical Adenopathy Skin: - - spinal incisions dressed. Pt declines removing dressing for examination Neurological: Alert and Oriented x 3 Result Diagrams: 01/29/17 06:29 01/29/17 06:29 Additional Lab and Data: Urine culture - E. coli growth, 20,000 colony growth from [facility] Microbiology and Other Data: Microbiology 01/28/17 11:14 Aerobic Blood Culture - Preliminary Blood Venous No Growth Day 1 Anaerobic Blood Culture - Preliminary No Growth Day 1 01/28/17 11:18 Aerobic Blood Culture - Preliminary Blood Venous No Growth Day 1 Anaerobic Blood Culture - Preliminary No Growth Day 1 Diagnostic Imaging: CXR - trace right pleural effusion, hyperinflation Assessment/Plan - Billing 66 yo male with a PMH significant for CAD, , ankylosing spondylitis, COPD, HTN , and HEATHER s/p recent syncopal episode c/b cervicothoracic injury requiring surgery, hematoma, and central cord syndrome. He has been [facility] for further PT/OT needs prior to d/c home, now with concern for elevated WBC. Plan By Medical Problem: 1. Central cord syndrome - Continue PT/OT. Pain management. Management per PMRU 2. Leukocytosis - Pt reports leukocytosis and evaluation by many providers since his 20s. Suspect increasingly elevated in setting of recent injury, surgery, and UTI. Pt reports his incisions were evaluated yesterday. If this is not correct they should be checked during this stay. He is currently declining my evaluation of his back. Of note, if urinary "bubbles" return they may be of clinical significance in setting of uti in a male. 3. CAD - continue statin and beta sonya. 4. COPD - stable. 5. HTN - Continue metoprolol and diltiazem. 6. HEATHER - Continue CPAP use. 7. Insomnia - patient may benefit from restarting home prn trazodone if okay with physiatry team. 8. UTI - c/w cephalexin. Would tx at least a 10 day course VTE PPX: Patient with spinal hematoma, anticoagulation contraindicated. Continue TEDs Diet: Regular diet Code Status: Full code Admission Status and Rationale: RU admission. Dispo per physiatry team. Thank you for this consultation. We will follow up on lab work. Please call if any other acute concerns.
[2017-01-29] MEDS: Losartan TAB* 25 MG PO SCH (17:13)
[2017-01-29] MEDS: Atorvastatin* 20 MG TAB PO SCH (17:13)
[2017-01-30] MEDS: Cephalexin CAP* 500 MG PO SCH ×3 (00:05→17:27)
[2017-01-30] MEDS: oxyCODONE TAB* 5 MG TAB PO PRN ×5 (00:05→21:54)
[2017-01-30] MEDS: Hydrochlorothiazide TAB* 25 MG PO SCH (08:27)
[2017-01-30] MEDS: Metoprolol Succinate XL TAB* 25 MG PO SCH (08:27)
[2017-01-30] MEDS: Diltiazem CD CAP* 180 MG PO SCH (08:27)
[2017-01-30] MEDS: Docusate CAP* 100 MG PO SCH ×2 (08:27→20:31)
[2017-01-30] MEDS: Losartan TAB* 25 MG PO SCH (17:27)
[2017-01-30] MEDS: Atorvastatin* 20 MG TAB PO SCH (17:27)
--- NOTE | 2017-01-30 18:47 | CONSULT ---
Subjective Date of Service: 01/30/17 Interval History: up eating dinner sensation of bubbles in urine resolved denies SOB/cough, dysurea pain well controlled Family History: Findings - Mother of cancer, father of liver cancer Social History: Findings - Current smoker, 1/2-1 ppd; denies EOTH use, , has 3 children Past Medical History: Findings - CAD with RCA occlusion (no stent secondary to collateral vessels), aortic stenosis, ankylosing spondylitis, COPD, HTN, RBBB, HEATHER Review of Systems - Measurements Intake and Output: Intake and Output Last 24 Hours 01/28/17 01/29/17 01/30/17 01/31/17 11:59 11:59 11:59 11:59 Intake Total 600 960 870 360 Output Total 300 0 Balance 600 660 870 360 Weight 81.647 kg Intake: Oral 600 960 870 360 Output: Urine 300 # Incontinent Voids 0 Other: Estimated Void Medium Medium Medium # Bowel Movements 1 Estimated Stool Amount Medium Medium # Voids 1 1 2 1 Objective Active Medications: Acetaminophen (Tylenol Tab*) 650 mg PO Q6H PRN PRN Reason: FEVER/PAIN Last Admin: 01/29/17 12:36 Dose: 650 mg Atorvastatin Calcium (Lipitor*) 20 mg PO 1700 [facility] Last Admin: 01/30/17 17:27 Dose: 20 mg Cephalexin HCl (Keflex Cap*) 500 mg PO Q8H [facility] Stop: 02/01/17 09:59 Last Admin: 01/30/17 17:27 Dose: 500 mg Diltiazem HCl (Cardizem Cd Cap*) 360 mg PO DAILY [facility] Last Admin: 01/30/17 08:27 Dose: 360 mg Docusate Sodium (Colace Cap*) 100 mg PO BID [facility] Last Admin: 01/30/17 08:27 Dose: 100 mg Hydrochlorothiazide (Hydrodiuril Tab*) 25 mg PO DAILY [facility] Last Admin: 01/30/17 08:27 Dose: 25 mg Losartan Potassium (Cozaar Tab*) 100 mg PO Q24H [facility] Last Admin: 01/30/17 17:27 Dose: 100 mg Magnesium Hydroxide (Milk Of Magnesia Liq*) 30 ml PO Q6H PRN PRN Reason: CONSTIPATION Last Admin: 01/30/17 09:52 Dose: 30 ml Metoprolol Succinate (Toprol Xl Tab*) 25 mg PO DAILY [facility] Last Admin: 01/30/17 08:27 Dose: 25 mg Oxycodone HCl (Roxycodone Tab*) 5 mg PO Q4H PRN PRN Reason: PAIN - MODERATE TO SEVERE Last Admin: 01/30/17 17:57 Dose: 5 mg Senna (Senokot Tab*) 2 tab PO BEDTIME PRN PRN Reason: CONSTIPATION Vital Signs 01/29/17 01/29/17 01/29/17 19:25 20:01 22:01 Temperature Pulse Rate Respiratory 18 20 Rate Blood Pressure (mmHg) O2 Sat by Pulse 99 Oximetry 01/30/17 01/30/17 01/30/17 00:05 01:45 04:04 Temperature Pulse Rate Respiratory 18 16 16 Rate Blood Pressure (mmHg) O2 Sat by Pulse Oximetry 01/30/17 01/30/17 01/30/17 05:49 06:38 06:53 Temperature 99.6 F 99.4 F Pulse Rate 73 71 Respiratory 16 20 20 Rate Blood Pressure 185/66 156/52 (mmHg) O2 Sat by Pulse 99 98 Oximetry 01/30/17 01/30/17 01/30/17 08:00 12:35 14:35 Temperature Pulse Rate Respiratory 18 18 Rate Blood Pressure (mmHg) O2 Sat by Pulse 98 Oximetry 01/30/17 17:57 Temperature Pulse Rate Respiratory 18 Rate Blood Pressure (mmHg) O2 Sat by Pulse Oximetry Oxygen Devices in Use Now: None Appearance: NAD Eyes: No Scleral Icterus, PERRLA Ears/Nose/Mouth/Throat: Clear Oropharnyx, Mucous Membranes Moist Neck: NL Appearance and Movements; NL JVP, Trachea Midline Respiratory: Symmetrical Chest Expansion and Respiratory Effort, Clear to Auscultation Cardiovascular: RRR Abdominal: NL Sounds; No Tenderness; No Distention, No Hepatosplenomegaly Lymphatic: No Cervical Adenopathy Extremities: No Edema, No Clubbing, Cyanosis Skin: - - back incision covered, declines this authors exam Neurological: Alert and Oriented x 3 Result Diagrams: 01/29/17 06:29 01/29/17 06:29 Additional Lab and Data: Urine culture - E. coli growth, 20,000 colony growth from [facility] Microbiology and Other Data: Microbiology 01/28/17 11:14 Aerobic Blood Culture - Preliminary Blood Venous No Growth Day 1 Anaerobic Blood Culture - Preliminary No Growth Day 1 01/28/17 11:18 Aerobic Blood Culture - Preliminary Blood Venous No Growth Day 1 Anaerobic Blood Culture - Preliminary No Growth Day 1 Diagnostic Imaging: CXR - trace right pleural effusion, hyperinflation Assessment/Plan - Billing This is a 66 yo male with a PMH significant for CAD, , ankylosing spondylitis , COPD, HTN, RBBB, and HEATHER who recently sustained a fall secondary to syncopal episode and was transferred to [facility] for surgical correction of C-spine fracture and had subsequent central cord syndrome. He has been transferred to [facility] for further PT/OT needs prior to d/c home, now with concern for elevated WBC. Plan By Medical Problem: 1. Central cord syndrome - Continue PT/OT. Pain management. Management per PMRU 2. Leukocytosis - chronic. I suspect elevated in setting of surgery and recent UTI -repeat CBC to evaluate 3. CAD - continue statin and beta sonya. 4. COPD - stable. Not on chronic inhalers, no O2 supplementation required. 5. HTN - Continue metoprolol and diltiazem. 6. HEATHER - Continue CPAP use. 7. Insomnia - patient may benefit from restarting home prn trazodone if okay with physiatry team. 8. UTI - complete 10 day course VTE PPX: Patient with spinal hematoma, anticoagulation contraindicated. Continue TEDs Diet: Regular diet Code Status: Full code Admission Status and Rationale: RU admission. Dispo per physiatry team. Thank you for this consultation. We will follow up on lab work. Please call if any other acute concerns.
[2017-01-30] MEDS: Acetaminophen TAB* 325 MG PO PRN (20:30)
[2017-01-31] MEDS: oxyCODONE TAB* 5 MG TAB PO PRN ×4 (01:58→20:58)
[2017-01-31] MEDS: Cephalexin CAP* 500 MG PO SCH ×3 (01:58→18:05)
[2017-01-31 05:13] LABS: Hematocrit 36 % (42-52); Hemoglobin 12.3 g/dl (14.0-18.0); Mean Corpuscular HGB Conc 34 g/dl (31-36); Mean Corpuscular Hemoglobin 31 pg (27-31); Mean Corpuscular Volume 92 fL (80-94); Mean Platelet Volume 8 um3 (7.4-10.4); Red Blood Count 3.94 10^6/ul (4.0-5.4); Red Cell Distribution Width 13 % (10.5-15); White Blood Count 17.3 10^3/ul (3.5-10.8)
[2017-01-31 05:24] LABS: C Reactive Protein 32.77 mg/L (< 5.00); EGFR Non-African American 104.2 (>60); Potassium 3.8 mmol/L (3.5-5.0)
[2017-01-31] MEDS: Hydrochlorothiazide TAB* 25 MG PO SCH (08:16)
[2017-01-31] MEDS: Diltiazem CD CAP* 180 MG PO SCH (08:16)
[2017-01-31] MEDS: Metoprolol Succinate XL TAB* 25 MG PO SCH (08:16)
[2017-01-31] MEDS: Docusate CAP* 100 MG PO SCH ×2 (08:16→20:58)
[2017-01-31] MEDS: Losartan TAB* 25 MG PO SCH (18:05)
[2017-01-31] MEDS: Atorvastatin* 20 MG TAB PO SCH (18:05)
[2017-02-01] MEDS: Cephalexin CAP* 500 MG PO SCH ×2 (00:52→08:40)
[2017-02-01] MEDS: oxyCODONE TAB* 5 MG TAB PO PRN ×2 (00:52→20:35)
[2017-02-01] MEDS: Acetaminophen TAB* 325 MG PO PRN (07:10)
[2017-02-01] MEDS: Docusate CAP* 100 MG PO SCH ×2 (08:40→20:35)
[2017-02-01] MEDS: Diltiazem CD CAP* 180 MG PO SCH (08:40)
[2017-02-01] MEDS: Metoprolol Succinate XL TAB* 25 MG PO SCH (08:40)
[2017-02-01] MEDS: Hydrochlorothiazide TAB* 25 MG PO SCH (08:40)
--- NOTE | 2017-02-01 12:42 | PMRUTEAM ---
PMRU: Goals Current Status: Nursing: Current Status Skin Deviations [Back] Incision Skin Deviation Description [ drsg cdi Back] Bladder Current Status continent up to bathroom platform walker gait belt supervision Bowel Current Status last bm 01/30 Nutrition Current Status adequate Medication Current Status tylenol 650 07:15 for 5/10 pain to neck Physical Therapy: Current Status Bed Mobility Assistance Supervision Transfer Moblility Assistance Supervision Transfer/Bed Mobility Platform Walker Recommended Devices Transfer Mobility Comment Pt. able to transfer fm one surface to another S x 1 with platform wlkr. Ambulation Assistance Supervision Ambulation Assistive Devices Platform Walker Number of Feet Patient 150' Ambulated Ambulation Comment improving reciprocal type gait pattern. Stairs Assistance Supervision,Contact Guard Assist Stairs Recommended Devices Two Rails Number of Stairs 5 Curb Not Tested Occupational Therapy: Current Status Upper Body Dressing Supervision Lower Body Dressing Mod Assist Bathing Min Assist Toileting Supervision Toilet Transfer Supervision Shower Transfer Contact Guard Assist Eating Independent Rec Therapy: Current Status Summary of Assessment and RT assessment complete and pt. is aware of RT Clinical Impression services. Pt. has been cooperative and engaged in leisure visits. Treatment Goals Pt. will engage in leisure activities while on the unit. Treatment Plan Provide RT services and encourage involvement. Social Work: Current Status Discharge Plan return home with home care svs and family support Potential for Family Training pt's is scheduled for family training on Anticipated Discharge Home Destination Discharge With home care svs and family support Nutrition: Current Status Monitoring Pt s/p fall secondary to syncopal episode at home ; s/p surgery at [facility] and subsequent central cord syndrome. Labs reviewed; Na+ low but stable: 129. BG 154 on admission but is normalizing to 103 , 104 in am. Intake appears adequate: generally 75 -100% of meals, eats independently. Last BM 02/09; is receiving senna prn and colace daily. Full nutrition assessment to follow per protocol. Goals: Physical Therapy: Initial Goals Bed Mobility Assistance Independent Transfer Mobility Assistance Independent Transfer/Bed Mobility Platform Walker Recommended Devices Ambulation Independent Ambulation Recommended Devices Platform Walker Ambulation Distance 150 Stairs Assistance Independent Stair Recommended Devices One Rail Number of Stairs 5 Physical Therapy: Updated Goals Bed Mobility Assistance Independent Transfer Mobility Assistance Independent Transfer/Bed Mobility Platform Walker Recommended Devices Ambulation Assistance Independent Ambulation Assistive Devices Rolling Walker Ambulation Distance (ft) 150 Stairs Assistance Independent Stairs Recommended Devices One Rail Number of Stairs 5 Home Exercise Program Independent Assistance Occupational Therapy: Initial Goals Goals to be Completed in (Days 7-10 ) Upper Body Bathing Routine Independent Lower Body Bathing Routine Independent Upper Body Dressing Routine Independent Lower Body Dressing Routine Independent Toilet Hygeine and Clothing Independent Management Routine Toilet Transfer Routine Independent Step-In Shower Transfer Independent Routine Tub Transfer Routine Independent Functional Transfers for ADL Independent Grooming Routine Independent Feeding Routine Modified Independent with Feeding Assistive Devices built up handles Nursing: Goals Nutrition Goal excellent Nutrition: Goals Intervention Goals 1. Intake will remain adequate to maintain UBW 2. BG will remain adequately controlled 3. Pt will maintain regular bowel pattern without constipation Social Work: Goals Discharge Plan return home with home care svs and family support Potential for Family Training pt's is scheduled for family training on Anticipated Discharge Home Destination Discharge With home care svs and family support Care Plan: Care Plan ADL's - Improve/Maintain Start: 01/28/17 11:43 Freq: DAILY Status: Active Target: Activity Type Activity Date Activity User E-Sign Co-Sign Detail Recorded Client Recorded Date Recorded By Document 01/31/17 15:06 [id number] 01/31/17 15:07 [id number] 01/31/17 15:06 PMRU Outcome: ADL's/ADL Transfers Orders/Interventions Occupational Therapy Evaluation & Treatment Communication Tool in Patient Room Device Yes: Platform walker Address Deficits Secondary To: R UE weakness; central cord syndrome Patient to receive OT 5x/wk for 60-120 Therex min/day Self Care Management Group Therapy Neuromuscular ReEducation UE/LE ADL's with Assist Yes ADL Transfers with Assist Yes Toileting: Transfers,Clothing Management Yes ,Hygeine w/Assist Light Kitchen/Laundry w/Assist Yes Progression Toward Outcome/Goals Progressing Outcome/Goals Met Pt. able to complete upper body dressing and bathing independently, and lower body dressing and bathing with min assist. Pt. has improved with grasp and release of small objects, but is limited when overcoming resistance. DVT Prophylaxis- Improve/Maintain Start: 01/27/17 22:31 Freq: DAILY Status: Active Target: Activity Type Activity Date Activity User E-Sign Co-Sign Detail Recorded Client Recorded Date Recorded By Document 02/01/17 07:45 [id number] 02/01/17 07:46 [id number] 02/01/17 07:45 PMRU Outcome: DVT Prophylaxis Outcome/Goals Remains Free of DVT Complies with DVT Prophylaxis /Treatment TEDS Stockings on Every AM, Off at HS Progression Toward Outcome/Goals Progressing Discharge Planning - Improve/Maintain Start: 01/27/17 22:31 Freq: DAILY Status: Active Target: Activity Type Activity Date Activity User E-Sign Co-Sign Detail Recorded Client Recorded Date Recorded By Document 01/31/17 21:42 [id number] 01/31/17 21:42 [id number] 01/31/17 21:42 PMRU Outcome: Discharge Planning Update Patient Family No Outcome/Goals Demonstrates Understanding of Discharge Plan Progression Toward Outcome/Goals Progressing Mobility- Improve/Maintain Start: 01/27/17 22:31 Freq: DAILY Status: Active Target: Activity Type Activity Date Activity User E-Sign Co-Sign Detail Recorded Client Recorded Date Recorded By Document 01/31/17 12:19 [id number] [email or web address] 01/31/17 12:19 [id number] 01/31/17 12:19 PMRU Outcome: Mobility Physical Therapy Evaluation and Yes Treatment Activity OOB with Assistance Yes WBAT Yes Device Yes Assistance Yes Patient to be seen 5x/wk for 60-120 min/ Therex day for: Mobility Training Gait Training W/C Mobility Balance Outcome/Goals Maintain/ Achieve Baseline Mobility Status Improve Mobility Status Demonstrates Proper Use of Assistive Devices Free from Complications of Immobility Progression Toward Outcome/Goals Progressing Bed Mobility Yes: independent Transfers Yes: independent wqith platform walker Gait x ft Yes: independent with platform walker to 150 feet Up/Down Stairs Yes: independet up/down 5 stairs with bilateral rails . Neurological- Improve/Maintain Start: 01/27/17 22:31 Freq: DAILY Status: Active Target: Activity Type Activity Date Activity User E-Sign Co-Sign Detail Recorded Client Recorded Date Recorded By Document 02/01/17 07:45 [id number] 02/01/17 07:46 [id number] 02/01/17 07:45 PMRU Outcome: Neurological Weakness/Aphasia Weakness Right Side Outcome/Goals Maintain/ Achieve Baseline Neurological Status Progression Toward Outcome/Goals Progressing Pain/Comfort- Improve/Maintain Start: 01/27/17 22:31 Freq: DAILY Status: Active Target: Activity Type Activity Date Activity User E-Sign Co-Sign Detail Recorded Client Recorded Date Recorded By Document 02/01/17 07:45 [id number] 02/01/17 07:46 [id number] 02/01/17 07:45 PMRU Outcome: Pain/Comfort Outcome/Goals Demonstrates Knowledge and Use of Available Comfort Measures Maintain Comfort Level Allowing Patient to Fully Participate in Rehab Progression Toward Outcome/Goals Progressing Outcome/Goals Met Comment tylenol 650 mg given for 5/10 pain to neck Respiratory - Improve/Maintain Start: 01/27/17 22:31 Freq: DAILY Status: Active Target: Activity Type Activity Date Activity User E-Sign Co-Sign Detail Recorded Client Recorded Date Recorded By Document 02/01/17 07:45 [id number] 02/01/17 07:46 [id number] 02/01/17 07:45 PMRU Outcome: Respiratory Does Patient Have a Trach No Outcome/Goals Maintain/ Improve O2 Sat per MD Order Maintain/ Improve Activity Tolerance Prevent Pneumonia/ Atelectasis Progression Toward Outcome/Goals Progressing Safety- Improve/Maintain Start: 01/27/17 22:31 Freq: DAILY Status: Active Target: Activity Type Activity Date Activity User E-Sign Co-Sign Detail Recorded Client Recorded Date Recorded By Document 02/01/17 07:45 [id number] 02/01/17 07:46 [id number] 02/01/17 07:45 PMRU Outcome: Safety Outcome/Goals Remain Free of Injury or Harm Cooperates with Safety Measures for Least Restrictive Environment Prevent Falls/ Injury Progression Toward Outcome/Goals Progressing Skin- Improve/Maintain Start: 01/27/17 22:31 Freq: DAILY Status: Active Target: Activity Type Activity Date Activity User E-Sign Co-Sign Detail Recorded Client Recorded Date Recorded By Document 02/01/17 07:45 [id number] [id number] 02/01/17 07:46 [id number] 02/01/17 07:45 PMRU Outcome: Skin Skin Risk Level Medium Outcome/Goals Maintain/ Improve Skin Intergrity Free from Decubitus Progression Toward Outcome/Goals Progressing Medicine Note: Length of Stay: 3 days Anticipated Discharge Destination: Home Tentative Discharge Date: 02/04/17 Discharged to: home
[2017-02-01] MEDS: Losartan TAB* 25 MG PO SCH (17:47)
[2017-02-01] MEDS: Atorvastatin* 20 MG TAB PO SCH (17:47)
[2017-02-01] MEDS: Tamsulosin CAP* 0.4 MG PO SCH (20:35)
[2017-02-02] MEDS: oxyCODONE TAB* 5 MG TAB PO PRN ×2 (00:34→20:06)
[2017-02-02] MEDS: Acetaminophen TAB* 325 MG PO PRN (05:04)
[2017-02-02] MEDS: Hydrochlorothiazide TAB* 25 MG PO SCH (08:37)
[2017-02-02] MEDS: Diltiazem CD CAP* 180 MG PO SCH (08:37)
[2017-02-02] MEDS: Docusate CAP* 100 MG PO SCH ×2 (08:38→20:06)
[2017-02-02] MEDS: Metoprolol Succinate XL TAB* 25 MG PO SCH (08:38)
[2017-02-02] MEDS: Losartan TAB* 25 MG PO SCH (17:21)
[2017-02-02] MEDS: Atorvastatin* 20 MG TAB PO SCH (17:21)
[2017-02-02] MEDS: Tamsulosin CAP* 0.4 MG PO SCH (20:06)
[2017-02-03] MEDS: oxyCODONE TAB* 5 MG TAB PO PRN ×3 (00:22→21:02)
[2017-02-03] MEDS: Acetaminophen TAB* 325 MG PO PRN ×2 (05:18→23:50)
[2017-02-03] MEDS: Hydrochlorothiazide TAB* 25 MG PO SCH (07:53)
[2017-02-03] MEDS: Diltiazem CD CAP* 180 MG PO SCH (07:53)
[2017-02-03] MEDS: Metoprolol Succinate XL TAB* 25 MG PO SCH (07:53)
[2017-02-03] MEDS: Docusate CAP* 100 MG PO SCH ×2 (07:53→21:03)
[2017-02-03 17:05] LABS: Urine Bacteria 1+ (Absent); Urine Bilirubin Negative (Negative); Urine Glucose Negative (Negative); Urine Nitrite Positive (Negative)
[2017-02-03] MEDS: Atorvastatin* 20 MG TAB PO SCH (17:16)
[2017-02-03] MEDS: Losartan TAB* 25 MG PO SCH (17:16)
[2017-02-03] MEDS ORDERED: Levofloxacin TAB* 250 MG PO SCH (21:00)
[2017-02-03] MEDS: Tamsulosin CAP* 0.4 MG PO SCH (21:02)
[2017-02-04] MEDS: oxyCODONE TAB* 5 MG TAB PO PRN ×2 (00:49→04:01)
[2017-02-04 06:37] VITALS: BP 143/65
[2017-02-04 07:13] LABS: Hematocrit 35 % (42-52); Hemoglobin 11.8 g/dl (14.0-18.0); Mean Corpuscular HGB Conc 34 g/dl (31-36); Mean Corpuscular Hemoglobin 31 pg (27-31); Mean Corpuscular Volume 93 fL (80-94); Mean Platelet Volume 8 um3 (7.4-10.4); Red Blood Count 3.83 10^6/ul (4.0-5.4); Red Cell Distribution Width 13 % (10.5-15); White Blood Count 16.7 10^3/ul (3.5-10.8)
[2017-02-04 07:22] LABS: Albumin 3.4 g/dL (3.2-5.2); BUN/Creatinine Ratio 18.8 (8-20); Calcium 10.1 mg/dL (8.6-10.3); EGFR African American 124.4 (>60); EGFR Non-African American 96.7 (>60); Globulin 2.6 g/dL (2-4); Potassium 3.6 mmol/L (3.5-5.0); Total Bilirubin 0.6 mg/dL (0.2-1.0)
[2017-02-04] MEDS: Docusate CAP* 100 MG PO SCH (07:32)
[2017-02-04] MEDS: Diltiazem CD CAP* 180 MG PO SCH (07:32)
[2017-02-04] MEDS: Metoprolol Succinate XL TAB* 25 MG PO SCH (07:32)
[2017-02-04] MEDS: Hydrochlorothiazide TAB* 25 MG PO SCH (07:32)
--- NOTE | 2017-02-05 13:22 | DS ---
CC: Dr. Yony Denney in [place]; Dr. Nacho Mascorro from Urology; Dr. Gamaliel Nair, Gastroenterology. DISCHARGE SUMMARY: DATE OF ADMISSION: 01/27/17 DATE OF DISCHARGE: 02/04/17 DISCHARGE DIAGNOSES: 1. C5 MORAIMA D spinal cord injury. 2. Central cord syndrome. 3. Status post cervical fusion C5 through T1. 4. Status post spinal fusion T8 through T11. 5. Urinary tract infection. 6. Aortic stenosis. 7. Coronary artery disease. 8. Chronic obstructive pulmonary disease. 9. Obstructive sleep apnea. 10. 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 10. Leukocytosis, chronic HISTORY OF PRESENT ILLNESS: Dalton Rader is a 66-year-old male. For a complete history of the events leading up to his rehab stay please see the history and physical dictated by me on January 27. While on the rehab unit, the patient finished treatment for his urinary tract infection. He continued to complain of the feeling that there were gas bubbles in his urine stream. A second urine culture and urinalysis were done which again were indicative of a urinary tract infection. He was started on Levaquin. Also it was found out that he does have a history of diverticulosis. As such, it was decided after discussing his case with urology and gastroenterology that he would have a CAT scan of his abdomen and pelvis with oral contrast. If the oral contrast passed into his bladder, it would be indicative of a fistula between his colon and bladder. This will be done as an outpatient on TuesdayFebruary 07 at 9:15 a.m. He will follow up with gastroenterology a few days after the CAT scan. In the meantime, he continued to take Levaquin for his urinary tract infection. The final culture results were not available as of this dictation. The patient was noted to have a chronically high white blood cell count. This has been something that has been worked up in the past and no cause has been found. The patient as far as his spinal cord injury was concerned had arm greater than leg weakness, much more pronounced on the right side than the left. The patient worked with both physical therapy and occupational therapy while on the rehab unit. He made good gains with both disciplines. With physical therapy at the time of admission, the patient required contact guard to do a transfer. He was able to ambulate with a platform walker with contact guard assistance. With occupational therapy, he was contact guard to min assist for upper body dressing. He was moderate amount of assistance for lower body dressing. He required min- assist for bathing on admission. Toilet was contact guard. Toilet transfers were min-assist. By the time of discharge, the patient was independent in transfers, independent with toilet transfers, did require supervision for lower body dressing, supervision for tub transfers. He was independent ambulating 300 feet with a platform walker and going up and down 10 stairs. The patient was discharged home with his on 02/04/17. DISCHARGE DIET: Regular. DISCHARGE MEDICATIONS: Included: 1. Levaquin 250 mg daily. 2. Cardizem CD 360 mg daily. 3. Lipitor 20 mg daily. 4. Losartan 100 mg daily. 5. Toprol XL 25 mg daily. 6. Flomax 0.4 mg at bedtime. 7. Oxycodone 5 mg every 4 hours as needed with a maximum daily dose of 4. 8. Hydrochlorothiazide 25 mg daily. SERVICES AFTER DISCHARGE: Through [facility], the patient will have home physical therapy, home occupational therapy, and assisted. FOLLOWUP: The patient will follow up with Dr. Gamaliel Nair as well as with Dr. Yony Denney, and Dr. Nacho Mascorro. He will also follow up with his spine surgeon Dr. Drew Mckee in [place]. [id number]/[facility] #: [id number] [facility]
== END 2017-02-04 11:15 | disposition home or self-care (01) | DRG 945 ==
LOC: PMRU 15:34
PROVIDERS: ADMIT Physical Medicine & Rehabilitation; ATTEND Physical Medicine & Rehabilitation
PROC: F07Z5ZZ Bed Mobility Treatment (ICD-10-PCS; principal; 2017-01-27)
PROC: F07Z8ZZ Transfer Training Treatment (ICD-10-PCS; 2017-01-27)
PROC: F07Z9ZZ Gait Training/Functional Ambulation Treatment (ICD-10-PCS; 2017-01-27)
PROC: F08Z0ZZ Bathing/Showering Techniques Treatment (ICD-10-PCS; 2017-01-27)
PROC: F08Z1ZZ Dressing Techniques Treatment (ICD-10-PCS; 2017-01-27)
PROC: F08Z3ZZ Feeding/Eating Treatment (ICD-10-PCS; 2017-01-27)
DX: S14.125D Central cord syndrome at C5 level of cervical spinal cord, subsequent encounter (principal); N39.0 Urinary tract infection, site not specified; I11.9 Hypertensive heart disease without heart failure; J44.9 Chronic obstructive pulmonary disease, unspecified; E87.1 Hypo-osmolality and hyponatremia; N32.1 Vesicointestinal fistula; S12.400D Unspecified displaced fracture of fifth cervical vertebra, subsequent encounter for fracture with routine healing; M45.0 Ankylosing spondylitis of multiple sites in spine; I25.10 Atherosclerotic heart disease of native coronary artery without angina pectoris; I35.0 Nonrheumatic aortic (valve) stenosis; G47.33 Obstructive sleep apnea (adult) (pediatric); B96.20 Unspecified Escherichia coli [E. coli] as the cause of diseases classified elsewhere; D72.828 Other elevated white blood cell count; F17.210 Nicotine dependence, cigarettes, uncomplicated; I45.10 Unspecified right bundle-branch block; G47.00 Insomnia, unspecified; W18.30XD Fall on same level, unspecified, subsequent encounter; Z79.899 Other long term (current) drug therapy; Z98.61 Coronary angioplasty status
CPT/HCPCS: 36415; 71020; 80048; 80053; 81003; 81015; 85025; 86140; 87040; 87077; 87086; 87186; A9270-GY

== ENCOUNTER 2017-08-03 10:17 | Inpatient (IN) | payer MEDICARE, BC, OTHER ==
--- NOTE | 2017-07-28 22:27 | HP ---
CC: Dr. Yony Denney, [facility]; Dr. Nacho Mascorro; Dr. Mj Slaughter, [facility] Cardiology * ADMISSION HISTORY AND PHYSICAL: DATE OF ADMISSION: 08/03/17 ATTENDING SURGEON: Dr. Mj Maravilla * (DICTATED BY NILSON GALICIA) CHIEF COMPLAINT: Diverticulitis with colovesical fistula. HISTORY OF PRESENT ILLNESS: This is a 66-year-old male who was apparently having symptoms of UTI with pneumaturia and who on 01/21/17 had a syncopal episode at home with resultant C- and T-spine fracture. He was transferred to [facility] where spinal instrumentation and arthrodesis was performed including fusion of C4 through T1 with subsequent posterior fixation of T8 through T11 with a central cord syndrome. He was transferred back to [facility] for rehab. During that same period of time, the patient was catheterized. He continued to have pneumaturia. CT scan without contrast was performed on showing significant sigmoid diverticulosis with mesenteric stranding and changes consistent with acute diverticulitis, though there was no demonstration of a fistula. There was air noted within the bladder. The patient was treated with a 14-day course of Cipro and Flagyl. A repeat CT scan with rectal contrast was done on 03/10/17. This again showed small amount of urine in the bladder, but did not demonstrate a definitive fistula. The patient has been on multiple courses of antibiotics, though is not currently on antibiotics. He denies fever or chills, but does have general fatigue and lack of energy. He reports pneumaturia at the end of micturition on a daily basis. He had undergone prior colonoscopy in 2014 which included findings of sigmoid diverticulosis and right- sided adenomatous colon polyps which were removed and 5-year followup was recommended. The patient was referred and seen by Dr. Maravilla on 05/26/17. Dr. Maravilla has reviewed his workup and imaging studies. It was not felt necessary to undergo repeat colonoscopy given his colonoscopy 2 years ago and more recent CT imaging. The patient has been seen for preoperative evaluation by Dr. Slaughter (see attached notes). The patient understands the indications for surgery, the risks, benefits, and alternatives. He would like to proceed as scheduled with open sigmoid colectomy with take down of colovesical fistula. PAST MEDICAL HISTORY: Cervical fracture with spinal cord injury at 01/21/17 requiring surgery for stabilization. He continues to have weakness of the extensors of the right hand and some gait instability, but does not require any support for ambulation. He has a history of coronary artery disease (status post RCA occlusion with collateralization) as well as LVH and moderate aortic stenosis (see separate notes from Dr. Slaughter and recent stress echo report). He has been treated for hypertension, insomnia, basal cell carcinoma and squamous cell carcinoma of the skin. He has a chronic leukocytosis apparently related to ankylosing spondylitis. He has a long smoking history, but did quit at the time of his fall in December 2016. He has a history of an upper GI bleed from duodenal ulcer in 2006. He was treated for H. Pylori at that time with no recurrence. PAST SURGICAL HISTORY: Include laparoscopic right inguinal hernia repair with mesh, the aforementioned cervical and thoracic spine surgeries, tonsillectomy, dental extractions, and bilateral eye surgery as a child for strabismus. CURRENT MEDICATIONS: 1. Aspirin 81 mg once daily (the patient will hold 1 week preoperatively, his last dose being 07/28/17). 2. Atorvastatin 20 mg once daily. 3. Metoprolol succinate extended release 25 mg once daily. 4. Losartan 100 mg once daily. 5. Hydrochlorothiazide 25 mg once daily. 6. Diltiazem extended release 360 mg once daily. 7. Multivitamin once daily. 8. Vitamin D3 5000 units once daily. 9. Melatonin 3 mg at bedtime. DRUG ALLERGIES: None known. FAMILY HISTORY: Negative for colorectal cancer, anesthesia problems, bleeding, or clotting disorder. SOCIAL HISTORY: The patient is , his accompanies him today. 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 He is a former smoker between one-half and 1 pack per day for 45 years. He quite on 01/21/17. He drinks alcohol infrequently (less than 1 drink per day). He denies any other recreational drug use. REVIEW OF SYSTEMS: General: He has had a recent URI with minimally productive cough which he feels is improving. He denies fevers, chills, or other constitutional symptoms. Cardiovascular: He was evaluated by Dr. Slaughter. He underwent a stress echo. See separate reports. Respiratory: As noted above with occasionally productive cough. He denies shortness of breath. Cough is improving. GI: No upper GI symptoms. He maintains good appetite. He did lose approximately 20 pounds after his injury and surgeries, but has regained most of that and weight has been stable of late. : He is followed by Dr. Mascorro , see also above per HPI. Dr. Maravilla did not feel that a ureteral stent was required perioperatively. Endocrine: No diabetes or thyroid dysfunction. Neurological: He has some weakness of the right hand and right lower extremity. PHYSICAL EXAMINATION GENERAL: Well-nourished, well-developed male in no acute distress. VITAL SIGNS: Height 5 feet 9 inches, weight 180 pounds, temperature 98.6, blood pressure 140/80, pulse 84, and respirations 18. HEENT: Pupils are equal, round, and reactive. EOMs intact. No conjunctival pallor. Oropharynx: Some missing teeth. Otherwise, no intraoral lesions. NECK: Remarkable for extensive surgical scar in the posterior cervical and upper thoracic region. No palpable thyromegaly or cervical or supraclavicular lymphadenopathy. LUNGS: Clear to auscultation. No rales or wheezes. HEART: Regular rate and rhythm with systolic murmur heard throughout the precordium. ABDOMEN: Well-healed subumbilical and infraumbilical surgical scars consistent with laparoscopic hernia repair. No palpable masses or organomegaly. No palpable inguinal hernias. BACK: No spinous process or CVA tenderness. EXTREMITIES: No edema. NEUROLOGIC: Grossly intact, though specific neurological exam not performed at this time. He does have some gait disturbance and extensor weakness of the right hand. SKIN: Warm and dry. No suspicious rashes or lesions noted. IMPRESSION: Diverticulitis with colovesical fistula. PLAN: Open sigmoid colectomy with take down of colovesical fistula. NILSON GALICIA [id number]/[facility] #: [id number] [facility]
[~2017-08-03 10:17] MED LIST: Buffered Lidocaine 0.9% SYRIN* 5 ML/SYR SYRINGE INTRADERM ONE; Dexamethasone TAB* 4 MG PO ONE; DiMENhydriNATE IV* 50 MG/ML VIAL IV PUSH ONE; ERTApenem(*) 1 GM in NS 0.9% 50 ML* 50 ML IVPB SCH; Famotidine IV* 10 MG/ML 2 ML (20 mg) IV ONE
--- OUTSIDE RECORDS SUMMARY | 2017-08-03 11:24 | XMS REPORT ---
:1950 External Reference #:[id number] Author Organization [employer] Address [address] [address] Phone [phone] Care Team Providers Name Role Phone Yony Denney M.D. Primary Care Physician Unavailable Payers Type Date Identification Numbers Payment Provider Subscriber Medicare Primary Effective: Policy Number: Medicare Bianca Vegan 2015 [id number] PayID: [id number] [address] [place] [address] Medigap Part B Policy Number: [id number] [facility] Bianac Vegan Group Number: [id number] [address] PayID: [id number] [place] [address] Problems Date Description Provider Status Onset: 02/07/2015 Disturbance in sleep behavior Lili Horowitz MD Active Onset: 02/07/2015 Tobacco user Lili Horowitz MD Active Onset: 03/21/2015 Hypersomnia with sleep apnea Miranda Olguin DNP, RN, Active [employer]ENCE CUSTODIAN-BC Onset: 09/16/2015 Obstructive sleep apnea Miranda Olguin DNP, RN, Active syndrome [employer]IDENCE CUSTODIAN-BC Family History Date Family Member(s) Problem(s) Comments General Atrial Fibrillation General Hypertension General Cancer Father due to of Lymphoma age 55 () Mother due to at age 57 Ocular Carcinoma () Siblings 2 Brothers HTN, A-Fib other brother HTN Social History Type Date Description Comments Marital Status 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 Cigarette Use 12/09/15 States want to start Chantix,but has not yet started Cigarette Use Former Cigarette Smoker ETOH Use Occasionally consumes alcohol Recreational Drug Use Denies Drug Use Smoking Patient is a former smoker Daily Caffeine Consumes on average 1 cup of regular coffee per day Exercise Type/Frequency Does not exercise Allergies, Adverse Reactions, Alerts Date Description Reaction Status Severity Comments 02/07/2015 NKDA active Medications Medication Date Status Form Strength Qnty SIG Indications Ordering Provider Atorvastatin Calcium 09/14 Active Tablets 20mg 90tab 1 by I25.2 Mj S. /2016 s mouth Aiken, DO every day FACC Metoprolol Succinate 09/14 Active Tablets 25mg 90tab 1 by I25.2 Mj SHannah ER /2016 ER 24HR s mouth Aiken, DO every day FACC Aspirin Adult Low 08/26 Active Tablets 81mg 120ta 1 by I25.[address] montalvo mouth Aiken, DO every day FACC Losartan Potassium 02/06 Active Tablets 100mg 1 by Unknown mouth every day Hydrochlorothiazide 02/06 Active Tablets 25mg 1 by mouth every day Cpap Machine Active Device used Unknown /0000 during the night ( pt stop using device) Diltiazem HCL ER Active Caps ER 360mg 1 tablet Jumana, 24HR po daily Mick Bhakta ( Med increase 2 months ago 06/2016 Dr. Denney) Multivitamin Adult Active 1 tablet Unknown /0000 po daily Melatonin Active Tablets 3mg once at Unknown / night Vitamin D-3 Active Tablets 5000Unit daily Unknown /0000 Diltiazem HCL ER 02/06 Hx Caps ER 300mg 1 by 24HR mouth - every day 08/25 Trazodone HCL 02/06 Hx Tablets 50mg 3 tablet po at bedtime ( started increase , 1 month ago 07/2016)(n o longer taking) Ultracet 11/03 Hx Tablets 37.5-325m 30tab 1 - 2 po Rosalie /2013 g s q4-6hr Carmen - autumn cheung M.D. 12/07 Cialis Hx Tablets 20mg take 1 Unknown /0000 tablet po as needed (pt not taking) Chantix Starting Hx Tablets 0.5mg X Take One Unknown Month 11 & Tablet By - 1 mg X 42 Mouth 10/12 Twice Day as Directed ( Not Taking Yet) Medications Administered in Office Medication Date Status Form Strength Qnty SIG Indications Ordering Provider Technetium TC Administered Injection Mj S. 99M Kim Aiken DO Tetrofosmin, FACC Per Unit Dose Up To 40 Millicuries Vital Signs Date Vital Result Comment 07/28/2017 Height 69.5 inches 5'9.50" Weight 180.00 lb Heart Rate 84 /min BP Systolic 140 mmHg BP Diastolic 80 mmHg Respiratory Rate 18 /min Body Temperature 98.6 F BMI (Body Mass Index) 26.2 kg/m2 06/20/2017 Height 69.5 inches 5'9.50" Weight 180.00 lb without shoes Heart Rate 76 /min BP Systolic Sitting 130 mmHg Lue reg cuff BP Diastolic Sitting 70 mmHg Lue reg cuff BP Systolic Standing 130 mmHg Lue reg cuff BP Diastolic Standing 74 mmHg Lue reg cuff Respiratory Rate 17 /min BMI (Body Mass Index) 26.2 kg/m2 Ejection Fraction 50-55% date 07/29/16 ECHO 05/26/2017 Height 69.5 inches 5'9.50" Weight 179.00 lb Heart Rate 90 /min BP Systolic Sitting 136 mmHg BP Diastolic Sitting 90 mmHg Respiratory Rate 18 /min Body Temperature 99.4 F BMI (Body Mass Index) 26.1 kg/m2 04/21/2017 Height 69.5 inches 5'9.50" Weight 174.00 lb with shoes Heart Rate 72 /min BP Systolic Sitting 144 mmHg Rue reg cuff BP Diastolic Sitting 76 mmHg Rue reg cuff BP Systolic Standing 148 mmHg Rue reg cuff BP Diastolic Standing 84 mmHg Rue reg cuff Respiratory Rate 16 /min BMI (Body Mass Index) 25.3 kg/m2 Ejection Fraction 50-55% 07/29/2016-echo 11/30/2016 Height 69.5 inches 5'9.50" Weight 182.00 lb Heart Rate 79 /min BP Systolic Sitting 156 mmHg BP Diastolic Sitting 77 mmHg Body Temperature 97.6 F Pain Level 0 BMI (Body Mass Index) 26.5 kg/m2 10/13/2016 Height 69.5 inches 5'9.50" Weight 186.00 lb Heart Rate 72 /min BP Systolic Sitting 152 mmHg left arm, reg cuff BP Diastolic Sitting 80 mmHg left arm, reg cuff BP Systolic Standing 148 mmHg left arm, reg cuff BP Diastolic Standing 80 mmHg left arm, reg cuff BMI (Body Mass Index) 27.1 kg/m2 Ejection Fraction 50-55% 07/29/16 09/29/2016 Height 69.5 inches 5'9.50" Weight 180.00 lb per pt Heart Rate 106 /min BP Systolic Sitting 148 mmHg BP Diastolic Sitting 92 mmHg Respiratory Rate 14 /min O2 % BldC Oximetry 97 % BMI (Body Mass Index) 26.2 kg/m2 09/14/2016 Height 57.5 inches 4'9.50" Weight 180.31 lb without shoes Heart Rate 80 /min BP Systolic Sitting 166 mmHg Rue reg cuff BP Diastolic Sitting 80 mmHg Rue reg cuff BP Systolic Standing 160 mmHg Rue reg cuff BP Diastolic Standing 80 mmHg Rue reg cuff Respiratory Rate 17 /min BMI (Body Mass Index) 38.3 kg/m2 Ejection Fraction 50-55% date 07/29/16 ECHO 08/26/2016 Height 68 inches 5'8" Weight 181.31 lb without shoes Heart Rate 76 /min BP Systolic 150 mmHg Rue reg cuff BP Diastolic 70 mmHg Rue reg cuff BP Systolic Sitting 144 mmHg Lue reg cuff BP Diastolic Sitting 70 mmHg Lue reg cuff BP Systolic Standing 154 mmHg Lue reg cuff BP Diastolic Standing 84 mmHg Lue reg cuff Respiratory Rate 17 /min BMI (Body Mass Index) 27.6 kg/m2 Ejection Fraction 50-55% date 07/29/16 ECHO 03/31/2016 Height 69.5 inches 5'9.50" Weight 180.00 lb Heart Rate 72 /min BP Systolic Sitting 148 mmHg BP Diastolic Sitting 70 mmHg Respiratory Rate 14 /min O2 % BldC Oximetry 98 % BMI (Body Mass Index) 26.2 kg/m2 12/09/2015 Height 70 inches 5'10" Weight 180.00 lb Heart Rate 84 /min BP Systolic Sitting 160 mmHg BP Diastolic Sitting 60 mmHg Respiratory Rate 14 /min O2 % BldC Oximetry 98 % BMI (Body Mass Index) 25.8 kg/m2 09/16/2015 Height 67 inches 5'7" Weight 186.00 lb Heart Rate 98 /min BP Systolic 180 mmHg BP Diastolic 108 mmHg Respiratory Rate 14 /min O2 % BldC Oximetry 98 % BMI (Body Mass Index) 29.1 kg/m2 03/21/2015 Height 67 inches 5'7" Heart Rate 88 /min BP Systolic 150 mmHg BP Diastolic 82 mmHg Respiratory Rate 14 /min O2 % BldC Oximetry 98 % 02/07/2015 Height 67 inches 5'7" Weight 189.25 lb Heart Rate 97 /min BP Systolic 154 mmHg BP Diastolic 98 mmHg Respiratory Rate 14 /min Body Temperature 98.6 F O2 % BldC Oximetry 98 % BMI (Body Mass Index) 29.6 kg/m2 Neck Circumference in inches 15 Results Test Date Test Result H/L Range Note CBC Auto Diff 06/21/2017 White Blood Count 17.5 10^3/uL High 3.5-10.8 Red Blood Count 4.90 10^6/uL 4.0-5.4 Hemoglobin 14.9 g/dL 14.0-18.0 Hematocrit 45 % 42-52 Mean Corpuscular Volume 91 fL 80-94 Mean Corpuscular Hemoglobin 30 pg 27-31 Mean Corpuscular HGB Conc 33 g/dL 31-36 Red Cell Distribution Width 14 % 10.5-15 Platelet Count 277 10^3/uL 150-450 Mean Platelet Volume 8 um3 7.4-10.4 Abs Neutrophils 13.3 10^3/uL High 1.5-7.7 Abs Lymphocytes 1.9 10^3/uL 1.0-4.8 Abs Monocytes 1.2 10^3/uL High 0-0.8 Abs Eosinophils 1.0 10^3/uL High 0-0.6 Abs Basophils 0.1 10^3/uL 0-0.2 Abs Nucleated RBC 0 10^3/uL Granulocyte % 75.7 % 38-83 Lymphocyte % 10.9 % Low 25-47 Monocyte % 7.1 % 1-9 Eosinophil % 5.7 % 0-6 Basophil % 0.6 % 0-2 Nucleated Red Blood Cells % 0 Laboratory test finding 06/21/2017 Erythrocyte Sed Rate 7 mm/Hr 0-40 1 Comp Metabolic Panel 06/21/2017 Sodium 136 mmol/L 133-145 Potassium 4.0 mmol/L 3.5-5.0 Chloride 100 mmol/L Low 101-111 Co2 Carbon Dioxide 30 mmol/L 22-32 Anion Gap 6 mmol/L 2-11 Glucose 86 mg/dL 70-100 Blood Urea Nitrogen 19 mg/dL 6-24 Creatinine 0.91 mg/dL 0.67-1.17 BUN/Creatinine Ratio 20.9 High 8-20 Calcium 10.1 mg/dL 8.6-10.3 Total Protein 6.5 g/dL 6.4-8.9 Albumin 4.0 g/dL 3.2-5.2 Globulin 2.5 g/dL 2-4 Albumin/Globulin Ratio 1.6 1-3 Total Bilirubin 0.60 mg/dL 0.2-1.0 Alkaline Phosphatase 81 U/L 34-104 Alt 18 U/L 7-52 Ast 21 U/L 13-39 Egfr Non- 83.4 >60 Egfr 107.2 >60 2 Lipid Profile (Trig/Chol/HDL) 06/21/2017 Triglycerides 122 mg/dL 3 Cholesterol 120 mg/dL 4 HDL Cholesterol 59.4 mg/dL 5 LDL Cholesterol 36 mg/dL 6 Laboratory test finding 06/21/2017 Vitamin D Total 25(Oh) 29.7 ng/mL 20- 50 7 Laboratory test finding 11/30/2016 Erythrocyte Sed Rate 3 mm/Hr 0-40 8 C Reactive Protein 3.82 mg/L < 5.00 9 Connective Tissue Panel 11/30/2016 Anti-Nuclear Antibody 0.2 U 10 Cyclic Citrullinated Peptide <15.6 U 11 Interpretation See Comment 12 Laboratory test finding 11/30/2016 Vitamin D, 1,25 Dihydroxy 74 pg/mL 18- 64 13 Anca AB Ser If 11/30/2016 C-Anca Negative Negative P-Anca Negative Negative 14 Hepatitis Acute Panel 11/30/2016 Hepatitis C Antibody Nonreactive Nonreactive 15 Hepatitis A AB Igm Nonreactive Nonreactive 16 Hepatitis B Core AB Igm Nonreactive Nonreactive 17 Hepatitis B Surface Ag Nonreactive Nonreactive 18 Laboratory test finding 11/30/2016 Creatine Kinase(CK) 83 U/L 10-223 19 Aso (Antistreptolysin O) Titer 200 IU/mL IU/mL <200 Iu/mL 20 Quantiferon Gold TB 11/30/2016 M tuberculosis by Quantiferon Negative Negative 21 TB Ag minus Nil Result 0 IU/mL TB Mitogen minus Nil Result > 10.00 IU/mL TB Nil Result 0.02 IU/mL 22 Cath Panel 08/26/2016 Partial Thrombo Time PTT 30.5 seconds 26.0-36.3 CBC Auto Diff 08/26/2016 White Blood Count 13.3 10^3/uL High 3.5-10.8 Red Blood Count 4.98 10^6/uL 4.0-5.4 Hemoglobin 15.4 g/dL 14.0-18.0 Hematocrit 46 % 42-52 Mean Corpuscular Volume 92 fL 80-94 Mean Corpuscular Hemoglobin 31 pg 27-31 Mean Corpuscular HGB Conc 34 g/dL 31-36 Red Cell Distribution Width 14 % 10.5-15 Platelet Count 220 10^3/uL 150-450 Mean Platelet Volume 8 um3 7.4-10.4 Abs Neutrophils 10.9 10^3/uL High 1.5-7.7 Abs Lymphocytes 1.2 10^3/uL 1.0-4.8 Abs Monocytes 0.7 10^3/uL 0-0.8 Abs Eosinophils 0.3 10^3/uL 0-0.6 Abs Basophils 0.1 10^3/uL 0-0.2 Abs Nucleated RBC 0 10^3/uL Granulocyte % 82.0 % 38-83 Lymphocyte % 9.4 % Low 25-47 Monocyte % 5.3 % 1-9 Eosinophil % 2.4 % 0-6 Basophil % 0.9 % 0-2 Nucleated Red Blood Cells % 0 Laboratory test 08/26/2016 Hemoglobin A1c (Glyco 5.5 % Less than 6.0 23 finding HGB) Lipid Profile 08/26/2016 Triglycerides 64 mg/dL 24 (Trig/Chol/HDL) Cholesterol 145 mg/dL 25 HDL Cholesterol 60.2 mg/dL 26 LDL Cholesterol 72 mg/dL 27 Basic Metabolic Panel 08/26/2016 Sodium 133 mmol/L 133-145 Potassium 4.1 mmol/L 3.5-5.0 Chloride 98 mmol/L Low 101-111 Co2 Carbon Dioxide 31 mmol/L 22-32 Anion Gap 4 mmol/L 2-11 Glucose 214 mg/dL High 70-100 Blood Urea Nitrogen 24 mg/dL 6-24 Creatinine 0.98 mg/dL 0.67-1.17 BUN/Creatinine Ratio 24.5 High 8-20 Calcium 10.2 mg/dL 8.6-10.3 Egfr Non- 76.5 >60 Egfr 98.4 >60 28 Inr/Protime 08/26/2016 Inr 0.95 0.89-1.11 Surgical Pathology 11/10/2012 S RUN DATE: 11/13/ <SEE NOTE> 29 1 [id number] Copy Result to: Mj AIKEN ([id number]) 2 Because ethnic data is not always readily available, this report includes an eGFR for both -Americans and non- Americans. The National Kidney Disease Education Program (NKDEP) does not endorse the use of the MDRD equation for patients that are not between the ages of 18 and 70, are , have extremes of body size, muscle mass, or nutritional status, or are non- or non-. According to the National Kidney Foundation, irrespective of diagnosis, the stage of the disease is based on the level of kidney function: Stage Description GFR(mL/min/1.73 m(2)) 1 Kidney damage with normal or decreased GFR 90 2 Kidney damage with mild decrease in GFR 60-89 3 Moderate decrease in GFR 30-59 4 Severe decrease in GFR 15-29 5 Kidney failure <15 (or dialysis) 3 Desirable: <150 Borderline High: 150-199 High: 200-499 Very High: >500 4 Desirable: <200 Borderline High: 200-239 High: >239 5 Low: <40 Desirable: 40-60 High: >60 6 Desirable: <100 Near Optimal: 100-129 Borderline High: 130-159 High: 160-189 Very High: >189 7 [id number] Copy Result to: Mj AIKEN ([id number]) 8 Please check today 9 Acute inflammation: >10.00 10 REFERENCE VALUE <=1.0 (Negative) 11 REFERENCE VALUE <20.0 (Negative) 12 Tests for antibodies to dsDNA and RANDY antigens are not performed automatically unless the MICHELLE result is > or= 3.0 U. Studies performed at [facility] indicate that positive MICHELLE results <3.0 U are rarely accompanied by positive second order tests. Test Performed by: [facility] - [address] [address] 13 ADDITIONAL INFORMATION This test was developed and its performance characteristics determined by [facility] in a manner consistent with CLIA requirements. This test has not been cleared or approved by the U.S. Food and Drug Administration. Test Performed by: [facility] [place] [address] 14 Negative for cANCA and pANCA patterns by immunofluorescence. ADDITIONAL INFORMATION This test was developed and its performance characteristics determined by [facility] in a manner consistent with CLIA requirements. This test has not been cleared or approved by the U.S. Food and Drug Administration. Test Performed by: [facility] [place] [address] 15 Please check today 16 Please check today 17 Please check today 18 Please check today 19 Please check today 20 Normal values may vary with age, season and geographic area. Titers above upper limits may be indicative of infection, however only a two dilution rise in titer is required to be considered significant. ASO titer will usually rise above upper limits within one week of exposure, increase to peak levels at 3-5 weeks and return to baseline level at 6-12 twelve months. 21 No interferon-gamma response to M. tuberculosis antigens was detected. Infection with M. tuberculosis is unlikely. A negative result alone does not exclude infection with M. tuberculosis. For detailed information regarding test interpretation see: [email or web address]-[email or web address]/ [email or web address] 22 Test Performed by: [facility] [place] [address] 23 Therapeutic target for the treatment of diabetes Mellitus patients is <7% HBA1C, and in selective patients <6.0%.Please refer to [place] [employer] Diabetic care guidelines for further information. 24 Desirable <150 Borderline high 150-199 High 200-499 Very High >500 25 Desirable <200 Borderline high 200-239 High >239 26 Low <40 Desirable: 40-60 High: >60 27 Desirable: <100 mg/dL Near Optimal: 100-129 mg/dL Borderline High: 130-159 mg/dL High: 160-189 mg/dL Very High: >189 mg/dL 28 Because ethnic data is not always readily available, this report includes an eGFR for both -Americans and non- Americans. The National Kidney Disease Education Program (NKDEP) does not endorse the use of the MDRD equation for patients that are not between the ages of 18 and 70, are , have extremes of body size, muscle mass, or nutritional status, or are non- or non-. According to the National Kidney Foundation, irrespective of diagnosis, the stage of the disease is based on the level of kidney function: Stage Description GFR(mL/min/1.73 m(2)) 1 Kidney damage with normal or decreased GFR 90 2 Kidney damage with mild decrease in GFR 60-89 3 Moderate decrease in GFR 30-59 4 Severe decrease in GFR 15-29 5 Kidney failure <15 (or dialysis) 29 RUN DATE: 11/13/12 [facility] LAB LIVE PAGE 1 RUN TIME: [address] [place] [id number] Specimen Inquiry Name: BIANCA LINDER : [address]: Rosalie Morales MD Acct: [id number] Unit: [id number] AGE: 62 Location: OR Re11/10/12 SEX: M Status: REG [place] SPEC: [id number] GIOVANNY: 11/10/12- SUBM DR: Rosalie Morales MD REQ: [id number] RECD: 11/10/121157 STATUS: SOUT _ ORDERED: LEVEL III, LEVEL IV FINAL DIAGNOSIS 1. Skin, left hand, excision: A. 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 B. No evidence of neoplasia identified.. 2. Soft tissue, left hand, excision: Epidermal inclusion cyst. PRE-OPERATIVE DIAGNOSIS Left hand mass. GROSS DESCRIPTION 1. The specimen is received in formalin labeled Bianca Linder, Left Hand Skin Lesion, and consists of a skin ellipse measuring 2.5 x 0.6 x 0.5 cm. The specimen is inked, sectioned along its short axis, and submitted entirely, one cassette. 2. The specimen is received in formalin labeled Bianca Linder, Left Hand Mass, and consists of multiple leon, membranous polypoid fragments measuring 1.8 x 1.0 x 0.8 cm. Submitted entirely, one cassette. Signed (signature on file) Marcial Michele MD 1544 END OF REPORT * ML=Testing performed at Main Lab DEPARTMENT OF PATHOLOGY, [address] [place] [address] Marcial Michele M.D. Director [facility] Permit #[id number] Procedures Date CPT Code Description Status 06/23/2017 56619 Stress ECHO Interpretation/Report Hospital Completed 06/23/2017 01767 Treadmill Interp/Report Only Completed 06/23/2017 90530 Stress Test Supervsn W/Out I/R Completed 06/20/2017 60429 EKG Tracing & Interpretation Completed 10/12/2016 07001 Stress Test Completed 10/12/2016 45148 Myocardial Perfusion Imaging Tomographic (Spect) Completed Multiple Studies 09/02/2016 98449 RT & lt Cath W/Injx HRT Art&L Ventr Img S&I Completed 08/26/2016 20687 EKG Tracing & Interpretation Completed 07/29/2016 83786 ECHO Transthoracic, Real-Time 2D With Doppler And Color Completed Flow 02/21/2015 07553 Sleep Study Unattended,HRT Rate,Oxygen Sat,Resp Completed Effort/Airflow 01/02/2014 39094 Laparoscopy, Surgical Repair Initial Inguinal Hernia Completed 12/28/2013 28761 EKG, Interpretation Only Completed 11/10/2012 33185 Excise Benign Lesion 2.1-3CM Completed Scalp/Neck/Hands/Feet/Genitalia Encounters Type Date Location Provider CPT E/M Dx Office Visit 06/20/2017 [facility] Mj Aiken, [address]487 I35.0 3:40p [facility] FACC I25.2 Z01.810 I25.10 I10 E78.5 F17.201 I25.82 I11.9 Office Visit 05/26/2017 2:15p [facility] [place] [address] K57.92 Service Station Attendant K63.2 Office Visit 04/21/2017 4:00p [facility] Mj Aiken, 73664 I35.1 [facility] FAC I25.10 I10 E78.5 F17.201 I25.82 I11.9 M45.0 Office Visit 01/30/2017 1:09p [facility], 10567 S14.129A Assoc, Hospitalists Mick D72.829 N39.0 Office Visit 01/29/2017 1:09p [facility], 30792 S14.129A Assoc, Hospitalgustabo Barton D72.829 N39.0 Office Visit 01/28/2017 1[facility]p [facility], [address] S14.129A Assoc, Hospitalists JD EDWARDS CONSULTANT D72.829 N39.0 Office Visit 01/22/2017 3:04p [facility] Vinay Ramirez M.D. 45883 S12.591B Assoc, Hospitalists M45.0 N41.0 I10 Office Visit 11/30/2016 8:00a [facility], 65593 M45.0 Deann DuboseDHannah M79.1 I35.1 I25.10 E55.9 F17.210 Office Visit 10/13/2016 1:40p [facility] [place] [address] I35.0 [facility] FACC I35.1 I25.2 I25.10 M45.0 Z72.0 Office Visit 09/29/2016 10:15a [facility] Miranda Olguin, 49146 G47.33 Services Of Deann RIOS RN, [employer]IDENCE CUSTODIAN-ADORE Office Visit 09/14/2016 11:45a [facility], [address] I25.2 [facility] FACC I25.6 I35.0 I35.1 R06.02 I25.10 I10 E78.5 F17.210 G47.33 I11.9 Office Visit 08/26/2016 10:40a [facility] [place] [address] I35.0 [facility] FACC I35.1 I25.10 E78.5 R73.9 Office Visit 03/31/2016 9:00a [facility] Miranda Olguin, 51624 G47.33 Services Of Deann RIOS RN, [facility] G47.8 F17.210 Office Visit 12/09/2015 11:45a [facility] Miranda Olguin, 77839 G47.33 Services Of Deann RIOS RN, [facility] F17.210 Office Visit 09/16/2015 9:15a [facility] Miranda Olguin, 31856 G47.33 Services Of [facility] RAJ RIOS, [employer]IDENCE CUSTODIAN-ADORE Office Visit 07/18/2015 3:35p [facility] Caridad Ricardo N.PHannha 33370 K92.2 Assoc, Hospitalists I10 Office Visit 07/17/2015 3:35p [facility] Assoc, Vinay Ramirez M.D. 53829 K92.2 Hospitalists I10 Office Visit 03/21/2015 3:30p [facility] Miranda Olguin 63856 327.23 Services Of [facility] BLANCA, RN, EVIDENCE CUSTODIAN- Office Visit 02/07/2015 9:30a [facility] [place] [address] 305.1 Services Of [facility] 780.54 Office Visit 09/28/2012 8:00a [facility] Rosalie Morales, 13911 215.9 C.M.A. M.D. Plan of Care Future Appointment(s):08/03/2017 12:30 pm - Yony Kaplan MD, FACS at [facility]08/03/2017 12:30 pm - Mj Maravilla MD at [facility]07/28/2017 - Jose Daniel Pike, PAK57.92 Dvtrcli of intest, part unsp, w/o perf or abscess w/o attlrP60.818 Encounter for other preprocedural examination
[2017-08-03] MEDS ORDERED: Buffered Lidocaine 0.9% SYRIN* 5 ML/SYR SYRINGE ONE (11:35)
[2017-08-03] MEDS ORDERED: DiMENhydriNATE IV* 50 MG/ML VIAL ONE (11:35)
[2017-08-03] MEDS ORDERED: Famotidine IV* 10 MG/ML 2 ML (20 mg) ONE (11:35)
[2017-08-03] MEDS ORDERED: Heparin VIAL(*) 5000 UNITS/ML VIAL (FIVE THOUSAND) ONE (11:36)
[2017-08-03] MEDS ORDERED: Dexamethasone TAB* 4 MG ONE (11:50)
[2017-08-03] MEDS ORDERED: Propofol* 10 MG/ML 20 ML BTL IV PUSH ONE (13:19)
[2017-08-03] MEDS ORDERED: Rocuronium* 10 MG/ML VIAL ONE (13:19)
[2017-08-03] MEDS ORDERED: Lidocaine 2% PF * 5 ML VIAL ONE (13:19)
[2017-08-03] MEDS ORDERED: Bupivacaine 0.25% SDV* 30 ML ONE (13:19)
[2017-08-03] MEDS ORDERED: Midazolam* 1 MG/ML 2 ML VIAL (2 MG) ONE (13:20)
[2017-08-03] MEDS ORDERED: fentaNYL* 50 MCG/ML 5 ML VIAL (250 MCG VIAL) ONE (13:20)
[2017-08-03] MEDS ORDERED: fentaNYL* 50 MCG/ML 2 ML VIAL (100 MCG VIAL) ONE ×6 (14:09→19:36)
[2017-08-03] MEDS ORDERED: Metoprolol Tartrate IV* 1 MG/ML 5 ML VIAL ONE ×2 (14:18→17:46)
[2017-08-03] MEDS ORDERED: PROCHLORPERAZINE INJ 5 MG/ML 2 ML VIAL IV PRN (14:32)
[2017-08-03] MEDS ORDERED: Ketorolac INJ* 30 MG/ML 1 ML VIAL IV PRN (14:32)
[2017-08-03] MEDS ORDERED: Scopolamine 1.5 mg* PATCH TRANSDERM PRN (14:32)
[2017-08-03] MEDS ORDERED: Morphine INJ* 2 MG/ML 1 ML CARPUJECT IV PRN (14:32)
[2017-08-03] MEDS ORDERED: Naloxone* 0.4 MG/ML 1 ML VIAL IV PRN (14:32)
[2017-08-03] MEDS ORDERED: Ondansetron INJ* 2 MG/ML VIAL ONE (16:59)
[2017-08-03] MEDS ORDERED: Neostigmine Methylsulfate* 2 MG/2 ML SYRINGE ONE (17:11)
[2017-08-03] MEDS ORDERED: Glycopyrrolate IV* 0.2 MG/ML 1 ML VIAL ONE (17:11)
[2017-08-03] MEDS: Acetaminophen IV 1GM/100ML * 1,000 MG/100 ML VIAL IVPB ONE ×2 (17:24→18:24)
--- NOTE | 2017-08-03 17:44 | PN ---
Progress Note - Progress Note Date of Service: 08/03/17 Note: Brief Operative Note: Preop Dx: diverticulitis; colovesical fistula Postop Dx: same Procedure: open sigmoid colectomy; takedown of colovesical fistula Anesthesia: GET Surgeon: Renita Asst: Eusebio; NILSON Pike; LYN Bermudez Fluids: 2700 ml UOP: 400 ml EBL: 50 - 100 ml Drains: 1 SHANTAL Specimen: sigmoid colon Findings: dictated
[2017-08-03] MEDS ORDERED: Ketorolac INJ* 30 MG/ML 1 ML VIAL ONE (18:09)
[2017-08-03] MEDS: fentaNYL* 50 MCG/ML 2 ML VIAL (100 MCG VIAL) IV PRN ×5 (18:14→19:46)
[2017-08-03] MEDS ORDERED: Acetaminophen IV 1GM/100ML * 100 ML ONE (18:21)
[2017-08-03] MEDS ORDERED: NS 0.9% 500 ML* 500 ML IV ONE (18:24)
[2017-08-03] MEDS ORDERED: Acetaminophen TAB* 325 MG PO PRN (18:25)
[2017-08-03] MEDS ORDERED: Metoclopramide IV* 5 MG/ML 2 ML VIAL IV PRN (18:32)
[2017-08-03] MEDS ORDERED: Morphine PCA ADULT* 5 MG/ML 30 ML PCA SCH (19:00)
[2017-08-03] MEDS: Ketorolac INJ* 30 MG/ML 1 ML VIAL IM SCH (21:05)
[2017-08-03] MEDS: Heparin VIAL(*) 5000 UNITS/ML VIAL (FIVE THOUSAND) SUBCUT SCH (22:19)
[2017-08-04] MEDS: Ketorolac INJ* 30 MG/ML 1 ML VIAL IM SCH ×4 (01:56→19:21)
[2017-08-04 05:53] LABS: Hematocrit 42 % (42-52); Hemoglobin 14.3 g/dl (14.0-18.0); Mean Corpuscular HGB Conc 34 g/dl (31-36); Mean Corpuscular Hemoglobin 31 pg (27-31); Mean Corpuscular Volume 90 fL (80-94); Mean Platelet Volume 8 um3 (7.4-10.4); Platelet Count 249 10^3/ul (150-450); Red Cell Distribution Width 14 % (10.5-15); White Blood Count 24.1 10^3/ul (3.5-10.8)
[2017-08-04] MEDS: Heparin VIAL(*) 5000 UNITS/ML VIAL (FIVE THOUSAND) SUBCUT SCH ×3 (06:06→21:19)
[2017-08-04 06:07] LABS: EGFR Non-African American 82.3 (>60)
[2017-08-04 06:18] LABS: ABS Basophils 0.1 10^3/ul (0-0.2); ABS Eosinophils 0 10^3/ul (0-0.6); ABS Lymphocytes 0.9 10^3/ul (1.0-4.8); ABS Monocytes 1.4 10^3/ul (0-0.8); ABS Neutrophils 21.8 10^3/ul (1.5-7.7); ABS Nucleated RBC 0 10^3/ul; Eosinophil % 0 % (0-6); Lymphocyte % 3.7 % (25-47); Nucleated Red Blood Cells % 0
[2017-08-04] MEDS: Diltiazem CD CAP* 180 MG PO SCH (08:45)
[2017-08-04] MEDS: Losartan TAB* 25 MG PO SCH (08:45)
[2017-08-04] MEDS: Metoprolol Succinate XL TAB* 25 MG PO SCH (08:45)
--- NOTE | 2017-08-04 09:18 | SURGPN ---
Subjective - Introduction -: Admitted on: 08/03/2017 Patient's surgical date: 08/03/2017 Procedure completed: Open sigmoid colectomy with takedown of colovesicular fistula - Medications -: Active Medications Generic Name Dose Route Start Last Admin Trade Name Freq PRN Reason Stop Dose Admin Acetaminophen 650 mg 08/03/17 18:25 Tylenol Tab* PO Q4H PRN mild pain or fever Diltiazem HCl 360 mg 08/04/17 09:00 08/04/17 08:45 Cardizem Cd Cap* PO 360 mg QAM DAMIÁN Administration Heparin Sodium (Porcine) 5,000 units 08/03/17 22:00 08/04/17 06:06 Heparin Vial(*) SUBCUT 5,000 units Q8HR DAMIÁN Administration Lactated Ringer's 1,000 mls @ 100 mls/hr 08/03/17 19:00 08/04/17 06:56 Lactated Ringers 1000 Ml Bag* IV 100 mls/hr PER RATE DAMIÁN Administration Morphine Sulfate 30 mls @ 0 mls/hr 08/03/17 19:00 08/03/17 22:10 Morphine Access Assoc Adult* 5 Mg/Ml TEACHER'S AIDE 20 mls/hr .change Q24H DAMIÁN Administration Protocol Per Protocol Ketorolac Tromethamine 30 mg 08/03/17 19:00 08/04/17 08:39 Toradol Inj* IM 08/06/17 18:26 Not Given Q6H DAMIÁN Losartan Potassium 100 mg 08/04/17 09:00 08/04/17 08:45 Cozaar Tab* PO 100 mg QAM DAMIÁN Administration Metoclopramide HCl 10 mg 08/03/17 18:32 Reglan Iv* IV Q6H PRN NAUSEA/VOMITING Metoprolol Succinate 25 mg 08/04/17 09:00 08/04/17 08:45 Toprol Xl Tab* PO 25 mg QAM DAMIÁN Administration Pharmacy Profile Note 1 note 08/06/17 14:34 Scopolamine Patch Remove* PATCH OFF 08/06/17 14:35 Q72H ONE - Comments Comments: Patient seen and examined at bedside. Reports doing well, minimal incisional pain. Denies N/V, fever or chills. No chest pain or SOB. Using his TEACHER'S AIDE with good pain control. Objective - Objective -: Awake and alert, comfortable in bed, in NAD - Intake and Output -: Intake & Output 08/02/17 08/03/17 08/04/17 08/05/17 06:59 06:59 06:59 06:59 Intake Total 3980 Output Total 1790 Balance 2190 Weight 180 lb Intake: IV Fluids 3980 LR 3980 Oral 0 Output: SHANTAL #1 140 Milian 1650 Surgical Physical Exam - Comments -: Vitals stable, Tmax 98.3 Lungs CTA bilat. Heart RRR, no murmurs Abdomen soft, NT, ND. Dressing clean and dry. SHANTAL with approx 25cc bloody output. No guarding or rigidity. Bowel sounds active. Ext. without edema Milian with clear urine Lbas reviewed, WBC 24,000, Mg 1.6 Assessment and Plan - Assessment -: A 66 y/o male, POD#1, s/p open sigmoid colectomy with takedown of colovesicular fistula, doing well. - Plan Additional Comments: Ambulate OOB to chair as tolerated. Hypomagnesemia, replace Mg Sips of clears for now Await bowel function Milian cath will stay in for now Leukocytosis, seems chronic issue with patient, will d/w Dr. Maravilla
[2017-08-04] MEDS ORDERED: Magnesium Sulfate 1 GM IV* 1 GM/100 ML BAG IV ONE (09:20)
--- NOTE | 2017-08-04 14:13 | OP ---
CC: Dr. Yony Denney; Dr. Nacho Mascorro; Dr. Mj Slaughter * DATE OF OPERATION: 08/03/17 - ROOM #334 DATE OF : 50 SURGEON: Mj Maravilla MD ASSISTANTS: 1. Yony Kaplan MD 2. NILSON Cuevas ANESTHESIOLOGIST: Darleen Cohn MD ANESTHESIA: General. PRE-OP DIAGNOSES: Diverticulitis and colovesical fistula. POST-OP DIAGNOSES: Diverticulitis and colovesical fistula. OPERATIVE PROCEDURE: Exploratory laparotomy and sigmoid colectomy and take down of colovesical fistula. ESTIMATED BLOOD LOSS: Less than 100 cc. IV FLUIDS: 2700 crystalloid. SPECIMEN: Sigmoid colon. DRAINS: #10 SHANTAL drain left between colon anastomosis and bladder, and a Milian catheter. COUNTS: Lap pad count and instrument count correct at the end of the procedure. CONDITION: The patient extubated and transferred to PACU in stable condition. DESCRIPTION OF PROCEDURE: Mr. Rader was identified in the preoperative area. Consent signed and the case was discussed again and the patient agreed and he was marked. He was brought to the operating room, placed on the operating table. General anesthesia was induced after the placement of SCDs and preoperative antibiotics. Please see Anesthesia note for additional information regarding this. Abdominal hair was clipped. A Milian catheter was inserted by the nursing staff. Next, the rectal exam was performed. There was no stool. We did place a Milian catheter and irrigated the rectum with a Betadine-saline mixture. There was no evidence of stool and he appeared clear from below. The patient's abdomen was then prepped and draped in standard surgical fashion, a time-out was performed. An infraumbilical incision was made along the midline. This started at the umbilicus and extended down to the pubic symphysis. We dissected through midline and noted we were just off midline to the right but stayed out of the muscular layer. Entry into the abdominal cavity was made. There was no free fluid. Small bowel appeared intact as was the sigmoid colon with the exception of the area around the bladder. Upper abdomen showed no evidence of lesions. The sigmoid colon was retracted medially, and we took down the attachments at the area of the bladder and also around the left abdominal wall taking down the white line of Toldt and extending this superiorly. There was some inflammatory tissue at the site and we did take this down by both blunt and sharp dissection to free the sigmoid colon from the iliac fossa. We realized we needed to extend our incision, this was done extending it around the umbilicus. A Bookwalter retractor was then inserted. It gave us a good look at the sigmoid colon as it extended towards the bladder. Sigmoid colon did not appear elongated at this point and so we continued the dissection of the white line of Toldt to bring the colon more medially and inferiorly. The retroperitoneum was entered, but we maintained safe protection of the ureter. Next, both blunt and sharp dissection was utilized to free the sigmoid colon off the bladder. Once this was freed, we identified the fistula and we reapproximated this wall with 2-0 Vicryl sutures in a figure-of-8 full thickness and then with an additional imbricating suture of 2-0 Vicryl. We did not ever see any evidence of urine and the bladder was decompressed. The posterior aspect of the dome of the bladder showed some shaggy changes but did not show any evidence of other fistulization. With the sigmoid colon off the dome of the bladder, we did realize that we were near the proximal sigmoid and there was an additional length in the hollow. This was retracted up and out of the incision site and we freed the peritoneum off the lateral aspects of the sigmoid colon along the pelvic brim. Next, points were chosen both proximally and distally. We utilized an 80-mm AKOSUA stapling device proximally along the distal descending colon and with LigaSure device, we took the sigmoid mesentery right down to our chosen point on the distal sigmoid. A TIA 90 green load was fired across this and we passed the specimen off. We irrigated the mesentery cut line and we gained hemostasis. Next, the distal descending colon lay in apposition to the distal sigmoid colon. We were concerned that there was some tension and took the Bookwalter out to reevaluate. At this point, we could see that there was minimal tension and we continued on. We did take the peritoneum off the rectum at the pelvic rim to gain little more length on the rectum, but I felt comfortable going forward with an end- anastomosis. Next, with the distal colon in hand, we did place a pursestring suture device just under the cut staple line, utilized a 3-0 monofilament suture on a Cain needle and cut the staple line and passed this off. We looked inside, we did note a very small diverticulum, but I decided rather to include into our anastomosis rather than to a different point proximally. We then dilated the colon up with 25 dilators and then a 28, could not go any further and for this reason, we chose 28 green load AKOSUA stapling device 4.8 mm. This anvil was then inserted and the pursestring suture tied. It did not like the way it puckered on one of the edges and we ended up removing this stitch. Rather than using the pursestring, we utilized the 3-0 Prolene suture and whipstitched the colon around itself to cinch it down on to the anvil taking care to include the small diverticulum. We utilized another 3-0 silk suture also to include this as best as we could into what would be expected circular staple line. We then assured hemostasis. We irrigated the abdomen and pelvis. There was essentially no leakage. From below, after dilating the anus with the dilators, the EEA stapler was inserted through the rectum just to the staple line and we andre the spike out just anterior to this. We made it this with the anvil and it showed the rotation of the colon. We fired the stapler. Two discrete complete doughnuts were identified within our stapling device. Next, we attached the anastomosis clamping proximally and inserting air through a Milian catheter with the balloon to the max. This was able to dilate the rectum as well as the distal colon proximal to the staple line. There was no evidence of bubbling and we evacuated that air and took the bowel clamp off. Next, I reviewed the anastomosis, it showed no bleeding. There was no evidence of ischemia. I, however, placed additional 3-0 silk sutures imbricating the wall to the rectum to the colon at this anastomosis. Next, a #10 SHANTAL drain was brought in through a separate stab incision and placed between the bladder and the colon. Again, we irrigated and removed all retraction devices. Lap pad count was performed at this point and next, we closed the posterior layer with a 2-0 Vicryl suture. I did this because we were minimally off midline and also there was a mesh from a previous laparoscopic inguinal hernia placed. This was fully incorporated but not seemingly a risk but placed this anyhow, then layered the fascia with a #1 Vicryl suture in a figure-of-8 fashion starting inferiorly and superiorly. The wound was then irrigated and the skin edges were reapproximated with the skin gun followed by sterile dressing. The patient tolerated the procedure well, was woken up in the OR and transferred to PACU in stable condition. [id number]/[facility] #: [id number] JYOTSNA
--- NOTE | 2017-08-04 14:42 | PN ---
Progress Note - Progress Note Date of Service: 08/04/17 SOAP: Subjective: [The patient reports he's doing well and is tolerating ice chips. He rates his pain a 3/4 and believes it's likely due to the incision. The patient reports nausea after ambulating but states it resolved on its own and plans to ambulate again this afternoon. The patient denies chest pain, SOB,vomiting, and passing flatus ] Objective: Vital Signs Temp 97.7 F 08/04/17 07:55 Pulse 83 08/04/17 07:55 Resp 16 08/04/17 07:55 BP 146/72 08/04/17 12:42 Pulse Ox 98 08/04/17 07:55 Intake & Output 08/03/17 08/04/17 08/04/17 18:59 06:59 18:59 Intake Total 2800 1180 Output Total 900 890 40 Balance 1900 290 -40 Weight 180 lb Intake: IV Fluids 2800 1180 LR 2800 1180 Oral 0 Output: SHANTAL #1 140 40 Milian 900 750 [Vitals Reviewed: Stable General: The patient was lying comfortably in bed Neurologic: A&O x3 Heart: RRR, systolic murmur Lungs: Clear to auscultation on the right, wheezing on the left at the bases Abdomen: Soft, non-tender, non-distended, incision clean with minimal blood oozing through the gauze. Extremities: Distal pulses intact bilaterally w/out edema] Assessment: [This is a 66 y.o male POD #1 s/p open sigmoid colectomy w/ takedown of colovesicular fistula, who is currently recovering well.] Plan: [- Continue encouraging the patient to ambulate - Continue Milian and SHANTAL - Continue to monitor Leukocytosis - Hypomagnesia (1.6)- replete magnesium ]
[2017-08-05] MEDS: Ketorolac INJ* 30 MG/ML 1 ML VIAL IM SCH ×2 (01:15→09:58)
[2017-08-05] MEDS: Heparin VIAL(*) 5000 UNITS/ML VIAL (FIVE THOUSAND) SUBCUT SCH ×3 (05:43→21:20)
[2017-08-05 07:29] LABS: ABS Basophils 0.1 10^3/ul (0-0.2); ABS Eosinophils 0.2 10^3/ul (0-0.6); ABS Monocytes 1.3 10^3/ul (0-0.8); ABS Neutrophils 13.9 10^3/ul (1.5-7.7); ABS Nucleated RBC 0 10^3/ul; Hematocrit 40 % (42-52); Hemoglobin 13.6 g/dl (14.0-18.0); Lymphocyte % 11.4 % (25-47); Mean Corpuscular HGB Conc 34 g/dl (31-36); Mean Corpuscular Hemoglobin 31 pg (27-31); Mean Corpuscular Volume 91 fL (80-94); Mean Platelet Volume 8 um3 (7.4-10.4); Nucleated Red Blood Cells % 0; Platelet Count 242 10^3/ul (150-450); Red Blood Count 4.46 10^6/ul (4.0-5.4); Red Cell Distribution Width 14 % (10.5-15); White Blood Count 17.5 10^3/ul (3.5-10.8)
[2017-08-05 07:53] LABS: EGFR Non-African American 98.1 (>60)
[2017-08-05] MEDS ORDERED: Magnesium Sulfate 1 GM IV* 1 GM/100 ML BAG IV ONE (08:16)
--- NOTE | 2017-08-05 08:22 | SURGPN ---
Subjective - Medications -: Active Medications Generic Name Dose Route Start Last Admin Trade Name Freq PRN Reason Stop Dose Admin Acetaminophen 650 mg 08/03/17 18:25 Tylenol Tab* PO Q4H PRN mild pain or fever Diltiazem HCl 360 mg 08/04/17 09:00 08/04/17 08:45 Cardizem Cd Cap* PO 360 mg QAM DAMIÁN Administration Heparin Sodium (Porcine) 5,000 units 08/03/17 22:00 08/05/17 05:43 Heparin Vial(*) SUBCUT 5,000 units Q8HR DAMIÁN Administration Lactated Ringer's 1,000 mls @ 100 mls/hr 08/03/17 19:00 08/05/17 04:38 Lactated Ringers 1000 Ml Bag* IV 100 mls/hr PER RATE DAMIÁN Administration Morphine Sulfate 30 mls @ 0 mls/hr 08/03/17 19:00 08/03/17 22:10 Morphine Sheetfed Press Operator Adult* 5 Mg/Ml PLANT MANAGER 20 mls/hr .change Q24H DAMIÁN Administration Protocol Per Protocol Magnesium Sulfate/Dextrose 1 gm in 100 mls @ 200 mls/hr 08/05/17 08:16 Magnesium Sulfate 1 Gm Iv* IV 08/05/17 08:45 ONCE ONE Ketorolac Tromethamine 30 mg 08/03/17 19:00 08/05/17 01:15 Toradol Inj* IM 08/06/17 18:26 Not Given Q6H DAMIÁN Losartan Potassium 100 mg 08/04/17 09:00 08/04/17 08:45 Cozaar Tab* PO 100 mg QAM DAMIÁN Administration Metoclopramide HCl 10 mg 08/03/17 18:32 08/04/17 09:57 Reglan Iv* IV 10 mg Q6H PRN Administration NAUSEA/VOMITING Metoprolol Succinate 25 mg 08/04/17 09:00 08/04/17 08:45 Toprol Xl Tab* PO 25 mg QAM DAMIÁN Administration Pharmacy Profile Note 1 note 08/06/17 14:34 Scopolamine Patch Remove* PATCH OFF 08/06/17 14:35 Q72H ONE - Comments Comments: Reports feeling a little better today. Did not sleep well last night, complaints of being uncomfortable on hospital bed due to his back issues. Denies abdominal pain, nausea or vomiting. Tolerating clear liquids. Ambulatory. Passing flatus. No fever or chills. Objective - Objective -: Awake and alert, appears comfortable and in NAD - Intake and Output -: Intake & Output 08/03/17 08/04/17 08/05/17 08/06/17 06:59 06:59 06:59 06:59 Intake Total 3980 2245 Output Total 1790 2565 Balance 2190 -320 Weight 180 lb Intake: IV Fluids 3980 2005 LR 3980 2004 Oral 0 240 Output: SHANTAL #1 140 90 Milian 1650 2475 Other: # Bowel Movements 0 Surgical Physical Exam - Comments -: Vitals reviewed, Tmax 99.1, BP 173/65 Lungs CTA bilat. Heart RRR Abdomen soft, mildly distended. Mild incisional tenderness. Incision C/D/I. SHANTAL with 10cc light bloody output, total of 140cc last 24hrs No guarding or rigidity, bowel sounds active in all quadrants Milian with clear urine Labs reviewed, WBC down to 17,000, Mg 1.8 Assessment and Plan - Assessment -: POD#2, s/p sigmoid colectomy with takedown of colovesicular fistula, stable - Plan Additional Comments: Ambulate Replace Mg Persistent HTN despite being on his usual PO meds Will d/w Dr. Maravilla if hospitalist consult is indicated
[2017-08-05] MEDS: Metoprolol Succinate XL TAB* 25 MG PO SCH (09:36)
[2017-08-05] MEDS: Diltiazem CD CAP* 180 MG PO SCH (09:37)
[2017-08-05] MEDS: Losartan TAB* 25 MG PO SCH (09:37)
[2017-08-05] MEDS: D5W 1/2 NS KCl 20 Meq 1000 ML* 1,000 ML IV SCH (12:00)
--- NOTE | 2017-08-05 15:43 | PN ---
Progress Note - Progress Note Date of Service: 08/05/17 SOAP: Subjective: Pt seen adn examined. Doing well. Difficult tiem sleeping last night. Pos flatus, pos burping, no Bm. Abdo pain. Objective: af vss UP good lungs clear abdo: soft/ distended, incisional tenderness, no redness no calf tendernss labs noted Assessment: POD2 sigmoid colectomy. 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
[2017-08-05] MEDS: Morphine INJ* 2 MG/ML 1 ML SYRINGE (TWO MG - NEW SYRINGE VERSION) IV PRN (21:19)
[2017-08-06] MEDS: D5W 1/2 NS KCl 20 Meq 1000 ML* 1,000 ML IV SCH ×2 (01:20→14:43)
[2017-08-06] MEDS: Heparin VIAL(*) 5000 UNITS/ML VIAL (FIVE THOUSAND) SUBCUT SCH ×3 (05:56→22:01)
[2017-08-06] MEDS ORDERED: Scopolamine PATCH Remove* 1 NOTE MISC PATCH OFF ONE ×2 (06:00→14:34)
--- NOTE | 2017-08-06 07:57 | PN ---
Progress Note - Progress Note Date of Service: 08/06/17 Note: Surgery Mr. Rader reports he had a BM last night. He feels much better. He also slept better last night. Vital Signs 08/05/17 08/05/17 08/05/17 09:00 11:00 11:40 Temperature 99.2 F Pulse Rate 80 Respiratory 16 16 16 Rate Blood Pressure 177/79 (mmHg) O2 Sat by Pulse 94 95 98 Oximetry 08/05/17 08/05/17 08/05/17 12:38 13:00 15:00 Temperature Pulse Rate Respiratory 16 14 Rate Blood Pressure 153/65 (mmHg) O2 Sat by Pulse 93 94 Oximetry 08/05/17 08/05/17 08/05/17 15:27 16:00 19:25 Temperature 97.7 F 97.9 F Pulse Rate 77 78 Respiratory 16 16 Rate Blood Pressure 167/72 179/73 (mmHg) O2 Sat by Pulse 95 95 97 Oximetry 08/05/17 08/05/17 08/05/17 21:19 21:31 22:11 Temperature Pulse Rate Respiratory 14 14 16 Rate Blood Pressure (mmHg) O2 Sat by Pulse Oximetry 08/05/17 08/06/17 23:44 03:23 Temperature 97.9 F 98.3 F Pulse Rate 74 71 Respiratory 18 18 Rate Blood Pressure 162/72 170/76 (mmHg) O2 Sat by Pulse 97 96 Oximetry Abd: good BS, some tenderness near incision. Incision: clean and dry without signs infection. SHANTAL: serosanguinous drainage. Intake & Output 08/05/17 08/06/17 08/06/17 22:59 06:59 14:59 Intake Total 1635 1164 Output Total 5 1058 Balance -430 106 Intake: IV Fluids 841 664 D5W 1/2 NS 20 meq KCL 664 IVF 841 IVPB 104 magnesium 104 Oral 690 500 Output: SHANTAL #1 15 8 Milian 2049 1050 Other: Date of Last Bowel 08/06/17 Movement # Bowel Movements 0 1 A/P Doing well on POD#3; can advance diet. D/C dependent on ability to tolerate diet, manage pain and be independent.
[2017-08-06] MEDS: Losartan TAB* 25 MG PO SCH (09:36)
[2017-08-06] MEDS: Diltiazem CD CAP* 180 MG PO SCH (09:36)
[2017-08-06] MEDS: Metoprolol Succinate XL TAB* 25 MG PO SCH (09:36)
--- NOTE | 2017-08-06 16:36 | CONSULT ---
Subjective Date of Service: 08/06/17 Interval History: Mr. Rader is feeling well today and is anxious to get home. His family is at the bedside. His pain is well controlled, and has been throughout his hospital course. No headaches, blurry vision, nausea, chest pain. We're asked to consult for HTN management. Mr. Rader reports his blood pressure has been well controlled. Family History: Unchanged from Admission Social History: Unchanged from Admission Past Medical History: Unchanged from Admission Review of Systems - Measurements Intake and Output: Intake and Output Last 24 Hours 08/04/17 08/05/17 08/06/17 08/07/17 06:59 06:59 06:59 06:59 Intake Total 3980 2245 2899 2016 Output Total 1790 2565 6198 1308 Balance 8173 -058 -8104 701 Weight 81.647 kg Intake: IV Fluids 3980 2004 1505 1006 D5W 1/2 NS 20 meq KCL 664 1006 IVF 841 LR 3980 2005 IVPB 104 magnesium 104 Oral 0 240 1290 1010 Output: #1 140 90 36 8 Milian 1650 2475 6100 1300 Other: Date of Last Bowel 08/06/17 Movement # Bowel Movements 0 1 - Review of Systems Constitutional Symptoms: Negative: Weight Gain, Weight Loss, Weakness, Fatigue, Fever, Night Sweats, Unexplained Falls, Other Pulmonary: Positive: Normal Cardiology: Positive: Normal Objective Active Medications: Acetaminophen (Tylenol Tab*) 650 mg PO Q4H PRN PRN Reason: mild pain or fever Diltiazem HCl (Cardizem Cd Cap*) [address] [facility] Last Admin: 08/06/17 09:36 Dose: 360 mg Heparin Sodium (Porcine) (Heparin Vial(*)) 5,000 units SUBCUT Q8HR [facility] Last Admin: 08/06/17 14:43 Dose: 5,000 units Hydrochlorothiazide ([facility]uril Tab*) [facility] Potassium Chloride/Dextrose (D5w 1/2 Ns Kcl 20 Meq 1000 Ml*) 1,000 mls @ 75 mls /hr IV PER RATE [facility] Last Admin: 08/06/17 14:43 Dose: 75 mls/hr Losartan Potassium (Cozaar Tab*) [facility] Last Admin: 08/06/17 09:36 Dose: 100 mg Metoclopramide HCl (Reglan Iv*) 10 mg IV Q6H PRN PRN Reason: NAUSEA/VOMITING Last Admin: 08/04/17 09:57 Dose: 10 mg Metoprolol Succinate (Toprol Xl Tab*) 25 mg PO QAM [facility] Last Admin: 08/06/17 09:36 Dose: 25 mg Morphine Sulfate (Morphine Inj (Syringe)*) 2 mg IV Q4H PRN PRN Reason: PAIN - MILD Last Admin: 08/05/17 21:19 Dose: 2 mg Vital Signs - 8 hr 08/06/17 08/06/17 11:24 15:27 Temperature 98.0 F 97.7 F Pulse Rate 70 69 Respiratory 18 20 Rate Blood Pressure 185/75 138/65 (mmHg) O2 Sat by Pulse 98 Oximetry Oxygen Devices in Use Now: None Appearance: alert, comfortable Eyes: No Scleral Icterus Ears/Nose/Mouth/Throat: NL Teeth, Lips, Gums Neck: - - JVP 8cm Respiratory: Symmetrical Chest Expansion and Respiratory Effort Cardiovascular: RRR, - - III/ systolic murmur loudest at LUSB without radiation to carotids; PMI nondisplaced Abdominal: - - midline incision stapled, no drainage or erythema, SHANTAL drain LLQ Lymphatic: No Cervical Adenopathy Extremities: No Edema Skin: No Rash or Ulcers Neurological: Alert and Oriented x 3 Result Diagrams: 08/05/17 07:17 08/05/17 07:17 Assessment/Plan - Billing Plan By Medical Problem: 1. HTN. He is on his home regimen here with the exception of Hctz 25mg daily. I will add this back now. I'm not giving him a dose now, as his most recent blood pressure reading was acceptable, but will add it back for tomorrow. 2. Moderate Aortic Insufficiency Monitor fluid status--jvp is mildly elevated and he may have tendency to become volume overloaded. I would hold off on any more IVF if not needed from a surgical standpoint. 3. CAD. Continue aspirin and metoprolol. Upon discharge, add back the atorvastatin 20mg daily. This is an appropriate potency.
[2017-08-06] MEDS: Morphine INJ* 2 MG/ML 1 ML SYRINGE (TWO MG - NEW SYRINGE VERSION) IV PRN (22:02)
[2017-08-07] MEDS: Heparin VIAL(*) 5000 UNITS/ML VIAL (FIVE THOUSAND) SUBCUT SCH ×3 (06:02→21:25)
[2017-08-07] MEDS: Metoprolol Succinate XL TAB* 25 MG PO SCH (08:10)
[2017-08-07] MEDS: Losartan TAB* 25 MG PO SCH (08:10)
[2017-08-07] MEDS: Hydrochlorothiazide TAB* 25 MG PO SCH (08:10)
[2017-08-07] MEDS: Diltiazem CD CAP* 180 MG PO SCH (08:10)
--- NOTE | 2017-08-07 11:18 | PN ---
Progress Note - Progress Note Date of Service: 08/07/17 Note: POD#4 s/p sigmoid colectomy Afeb, VS OK UO OK I<O passing stool/ flatus aakash liquids, hungry for more Not much pain Looks well Resp easy and unlabored Abd soft, sore, incis clean Heplock IV Increase diet as able Increase ambulation Prob home in AM Leave jerry in 2/2 bladder repair
--- NOTE | 2017-08-07 16:00 | PN ---
Hospitalist Progress Note Date of Service: 08/07/17 Blood pressure still poorly controlled despite addition of hctz. I recommend changing metoprolol to carvedilol, which has better blood pressure control.
[2017-08-08] MEDS: Heparin VIAL(*) 5000 UNITS/ML VIAL (FIVE THOUSAND) SUBCUT SCH (05:35)
[2017-08-08] MEDS: Metoprolol Succinate XL TAB* 25 MG PO SCH (08:59)
[2017-08-08] MEDS: Hydrochlorothiazide TAB* 25 MG PO SCH (08:59)
[2017-08-08] MEDS: Losartan TAB* 25 MG PO SCH (08:59)
[2017-08-08] MEDS: Diltiazem CD CAP* 180 MG PO SCH (08:59)
[2017-08-08 11:45] VITALS: BP 134/65
--- NOTE | 2017-08-09 04:22 | DS ---
CC: Dr. Yony Denney; Dr. Nacho Mascorro; Dr. Mj Slaughter * DISCHARGE SUMMARY: DATE OF ADMISSION: 08/03/17 DATE OF DISCHARGE: 08/08/17 HISTORY OF PRESENT ILLNESS: Mr. Rader is a 66-year-old gentleman who presented on same day of surgery and underwent an exploratory laparotomy and sigmoid colectomy and takedown of colovesicular fistula. Please see operative report for detail. The patient's postoperative course was mostly uneventful. He was transferred to the PACU unit and onto the short-stay surgical unit. The patient had a Milian catheter in place and that would be in place at the time of discharge as well due to the patient's disease of colovesicular fistula secondary to diverticulitis. The patient also had a SHANTAL drain left at the time of surgery. The patient's diet was advanced slowly into perioperative course. He was maintained on IV fluids. He had labs drawn on multiple occasions and underwent electrolyte infusions. He was treated with ROOM ATTENDANT pump in the early stages and was transferred to the oral pain medication. In the last 24 hours, he has only required a single dose to help sleep at bedtime. The patient is able to ambulate. On the day of discharge, patient was examined. He is afebrile. Vital signs stable. He was in no apparent distress. No nausea. No vomiting. Lungs are clear to auscultation bilaterally. Abdomen was soft, flat, nontender. Skin, well approximated with skin fidencio intact and the SHANTAL drain with scant serous fluid. Milian catheter in place with good urine output. No calf tenderness and extremities within normal limits. IMPRESSION: Postoperative day #5 from exploratory laparotomy, sigmoid colectomy , and takedown of colovesicular fistula. The plan is for discharge home with both SHANTAL drain and Milian catheter. I will follow him up on , he has an 11:30 appointment where we will remove the fidencio, the Milian and likely the SHANTAL drain. The patient is to go on a low-fiber, low-residue diet and he can utilize ibuprofen or Tylenol as needed for pain and a narcotics script was not given to him. He will restart all his other home medications. I discussed this with him and he understands the plan and he was discharged. [id number]/[facility] #: [id number] [facility]
== END 2017-08-08 12:30 | disposition home or self-care (01) | DRG 330 ==
LOC: AA 11:17 → SSU 20:25 → UNDODISIN 08-08 12:30
PROVIDERS: ADMIT Surgery; ATTEND Surgery
PROC: 0TBB0ZZ Excision of Bladder, Open Approach (ICD-10-PCS; 2017-08-03)
PROC: 0T9B70Z Drainage of Bladder with Drainage Device, Via Natural or Artificial Opening (ICD-10-PCS; 2017-08-03)
PROC: 0DTN0ZZ Resection of Sigmoid Colon, Open Approach (ICD-10-PCS; principal; 2017-08-03 12:30)
DX: K57.92 Diverticulitis of intestine, part unspecified, without perforation or abscess without bleeding (principal); K63.2 Fistula of intestine; E83.42 Hypomagnesemia; N32.1 Vesicointestinal fistula; J44.9 Chronic obstructive pulmonary disease, unspecified; I25.10 Atherosclerotic heart disease of native coronary artery without angina pectoris; I35.2 Nonrheumatic aortic (valve) stenosis with insufficiency; I10 Essential (primary) hypertension; Z85.828 Personal history of other malignant neoplasm of skin; Z87.891 Personal history of nicotine dependence; Z72.89 Other problems related to lifestyle; Z98.1 Arthrodesis status
CPT/HCPCS: 36415; 80048; 83735; 84100; 85025; 88307; 94660; 94760; 99406; A9270-GY; J1240; J1335; J1644; J1885; J2250; J2270; J2405; J2704; J2765; J3010; J3475; J3490; J8540

== ENCOUNTER 2018-11-27 05:32 | Day surgery (SDC) | payer MEDICARE, BC ==
--- NOTE | 2018-11-24 09:25 | HP ---
CC: Dr. Yony Denney * HISTORY AND PHYSICAL: DATE OF PLANNED ADMISSION AND SURGERY: 11/27/18 HISTORY OF PRESENT ILLNESS: Mr. Rader is a 68-year-old white male who is admitted with an enlarging and painful right hydrocele for surgical repair. Mr. Rader had been followed for bladder outlet obstruction and family history of prostate carcinoma. He was noted on previous examinations to have a large right hydrocele and a small left spermatocele. The condition had been asymptomatic until recently when the hydrocele became very large and tense, was significantly symptomatic interfering with his physical activities. Examination showed that the hydrocele had enlarged to about 15 cm in size. He had a scrotal ultrasound, which confirmed the presence of a large right hydrocele. There was a 5 cm left spermatocele. The testes looked normal. There were no findings to suggest inguinal hernias. Because of the above history and the size and the symptomatic nature of the right hydrocele, surgical repair was advised and accepted. Because the spermatocele is stable in size and asymptomatic, it will not be excised at this time. PAST MEDICAL HISTORY AND SYSTEM REVIEW: The patient developed a colovesical fistula about one [id number] ago. Around the same time, he had a syncopal episode at home fell on his back, and had a resultant cervical and thoracic spine fractures. He was transferred to [facility] where he underwent internal fixation of C4 through T1 and then from T8 to T11. He has residual weakness of his right hand and gait instability. However, he has been functioning fine. He also underwent division of the colovesical fistula in July 2017, which was secondary to diverticulitis . He ultimately did well and recovered from his surgeries. He has had right inguinal hernia repair done laparoscopically with mesh. He has a history of coronary artery disease and was cleared for his abdominal surgeries by Dr. Slaughter one year ago. He has not had any recurrent cardiac symptoms. MEDICATIONS: The patient is maintained on: 1. Atorvastatin 20 mg daily. 2. Metoprolol 25 mg daily. 3. Losartan 100 mg daily. 4. HCTZ 25 mg daily. 5. Diltiazem 360 mg daily. 6. Baby aspirin a day. 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 He is a former smoker of up to 1 pack per day for almost 40 years. He stopped smoking 2 years ago. He drinks alcohol infrequently. No recreational drug use. The patient had been followed with periodic PSA's because of his family history and his PSA had remained stable around 3.7. PHYSICAL EXAMINATION GENERAL: Pleasant white male, looks older than his age and has some difficulty ambulating because of his neurological condition. VITAL SIGNS: Blood pressure 150/80, pulse of 76. LUNGS: Clear. HEART: Regular and rhythmic. No murmurs. ABDOMEN: Soft, no masses, no tenderness, and no CVA tenderness. EXTERNAL GENITALIA: There is a very large and tense right hydrocele extending into the right inguinal area and pushing the left testis peripherally. The hydrocele transilluminates. No inguinal hernias are felt on either side. RECTAL: moderately enlarged, but non-suspicious prostate. EXTREMITIES: Show no edema. IMPRESSION: 1. Large, symptomatic, right hydrocele measuring more than 15 cm in diameter. 2. Asymptomatic small left spermatocele. 3. History of colovesical fistula secondary to diverticulitis, status post surgical correction. 4. Coronary artery disease, stable. 5. History of cervical and thoracic spine injury, status post surgical fixation with residual, but stable neurological condition. PLAN: Plan is for right hydrocelectomy. I discussed the operation in detail with the patient. Some of the potential complications including infection and hematoma were discussed. The patient also understands that it is very likely that he will have prolonged scrotal edema that might last 6 weeks postoperatively. All his questions were answered. [id number]/[facility] #: [id number] MTDD
[~2018-11-27 05:32] MED LIST changes: -Buffered Lidocaine 0.9% SYRIN* 5 ML/SYR SYRINGE INTRADERM ONE; +Buffered Lidocaine 1% SYRIN* 1 ML/SYRINGE INTRADERM ONE; -Dexamethasone TAB* 4 MG PO ONE; -DiMENhydriNATE IV* 50 MG/ML VIAL IV PUSH ONE; -ERTApenem(*) 1 GM in NS 0.9% 50 ML* 50 ML IVPB SCH; -Famotidine IV* 10 MG/ML 2 ML (20 mg) IV ONE
[2018-11-27] MEDS ORDERED: oxyCODONE/Acetamin 5/325 MG* TAB PO PRN (05:51)
[2018-11-27] MEDS ORDERED: fentaNYL* 50 MCG/ML 2 ML VIAL (100 MCG VIAL) IV PRN (05:51)
[2018-11-27] MEDS ORDERED: Morphine 4 MG/ML VIAL (1 ml) 4 MG/ML VIAL IV PRN (05:51)
[2018-11-27] MEDS ORDERED: DiMENhydriNATE IV* 50 MG/ML VIAL IV PUSH PRN (05:51)
[2018-11-27] MEDS ORDERED: PROCHLORPERAZINE INJ 5 MG/ML 2 ML VIAL IV PRN (05:51)
[2018-11-27] MEDS ORDERED: Naloxone* 0.4 MG/ML 1 ML VIAL IV PRN (05:51)
[2018-11-27] MEDS ORDERED: Scopolamine 1.5 mg* PATCH TRANSDERM PRN (05:51)
[2018-11-27] MEDS ORDERED: Ondansetron ODT TAB* 4 MG ONE (05:52)
[2018-11-27] MEDS ORDERED: ceFAZolin 2 GM PREMIX in ORs 2 GM/50 ML BAG IVPB ONE (05:53)
[2018-11-27] MEDS ORDERED: Dexamethasone TAB* 4 MG ONE (05:53)
[2018-11-27] MEDS ORDERED: Famotidine IV* 10 MG/ML 2 ML (20 mg) ONE (05:53)
[2018-11-27] MEDS ORDERED: Dexamethasone TAB* 4 MG PO ONE (06:00)
[2018-11-27] MEDS ORDERED: Ondansetron INJ* 2 MG/ML VIAL ONE (06:00)
[2018-11-27] MEDS ORDERED: Lactated Ringers 1000 ML Bag* 1,000 ML IV SCH (06:00)
[2018-11-27] MEDS ORDERED: Famotidine IV* 10 MG/ML 2 ML (20 mg) IV ONE (06:00)
[2018-11-27] MEDS ORDERED: Bupivacaine 0.5%* 50 ML VIAL ONE (07:15)
[2018-11-27] MEDS ORDERED: Midazolam* 1 MG/ML 5 ML VIAL (5 MG) ONE (07:21)
[2018-11-27] MEDS ORDERED: KETAMINE HCL* 50 MG/ML 10 ML VIAL ONE (07:21)
[2018-11-27] MEDS ORDERED: fentaNYL* 50 MCG/ML 2 ML VIAL (100 MCG VIAL) ONE (07:21)
[2018-11-27] MEDS ORDERED: Phenylephrine 10 MG/ML VIAL* 1 ML VIAL ONE (08:42)
[2018-11-27] MEDS ORDERED: Propofol* 10 MG/ML 20 ML BTL ONE (08:42)
[2018-11-27] MEDS ORDERED: EPHEDrine (Pressors)* 50 MG/ML VIAL ONE (08:42)
[2018-11-27] MEDS ORDERED: Ketorolac INJ* 30 MG/ML 1 ML VIAL ONE (08:42)
[2018-11-27 10:32] VITALS: BP 122/67
--- NOTE | 2018-11-28 02:55 | OP ---
CC: Dr. Yony Denney * DATE OF OPERATION: 11/27/18 - [facility] DATE OF : 50 SURGEON: Nacho Mascorro MD ANESTHESIOLOGIST: Dr. Jc Salas. ANESTHESIA: General. PRE-OP DIAGNOSIS: Large right hydrocele. POST-OP DIAGNOSIS: Large right hydrocele. OPERATIVE PROCEDURE: Right hydrocelectomy (scrotal approach). INDICATIONS: Mr. Rader is a 68-year-old white male who had a long history of minimally symptomatic right hydrocele. He gives past history of laparoscopic right inguinal hernia repair. Over the last several months, the right hydrocele has gotten much larger and became significantly symptomatic, interfering with his physical activities. Physical examination showed a tense, transilluminating right hydrocele measuring about 15 cm. There was no inguinal hernia noted. Scrotal ultrasound confirmed the above findings and showed a normal appearing right testis. There was also a 5 cm left spermatocele, but that was asymptomatic and it was decided not to operate on it. Because of the above history and findings, right hydrocelectomy was advised and accepted. PATHOLOGY:: exam under anesthesia again confirmed a tense large right hydrocele measuring about 15 cm and extending into the inguinal area. At surgery, about 400 cc of straw colored hydrocele fluid evacuated. The right testis looked normal. There was no hernia noted. The hydrocele sac was relatively thin. There were no lesions seen on the hydrocele sac. DESCRIPTION OF PROCEDURE: After successful general anesthesia, the patient was placed in the supine position and was prepped and draped for a scrotal incision. A transverse incision was carried in the mid anterior right hemiscrotum and was deepened through the dartos muscle. The hydrocele sac was identified and was dissected from the overlying dartos muscle and was delivered through the incision. The hydrocele sac was then opened and the hydrocele fluid was evacuated and was measured. The hydrocele sac was then partially excised. The edges of the hydrocele sac were then everted and approximated to themselves using running locking sutures of 4-0 Vicryl. Good hemostasis was achieved. The spermatic cord was intact and there was intact vascularity of the testicle. The testis was then replaced in the scrotal cavity making sure there was no twisting of the cord. The scrotal incision was irrigated with saline. A small [place] drain was placed into his scrotal cavity and brought out through a stab incision in the dependent portion of the scrotum. The dartos muscle was then closed using a running locking suture of 4-0 Vicryl. A total of 10 cc of 0.5% Marcaine was given in the skin for postoperative analgesia. This skin incision was closed using interrupted everting sutures of 4-0 chromic. The [place] drain that was transfixed to the skin with two sutures of 3-0 Prolene. A dressing was applied. The patient tolerated the procedure well and left the operating room in good condition. The blood loss was minimal. The specimen was portions of hydrocele sac. All the counts were correct. [id number]/[facility] #: [id number] [facility]
[2018-11-30] MEDS ORDERED: Scopolamine PATCH Remove* 1 NOTE MISC PATCH OFF ONE (05:53)
== END 2018-11-27 10:40 | disposition home or self-care (01) ==
LOC: OR 05:32
PROVIDERS: ATTEND Urology
DX: N43.3 Hydrocele, unspecified (principal); Z87.891 Personal history of nicotine dependence; I25.10 Atherosclerotic heart disease of native coronary artery without angina pectoris
CPT/HCPCS: 88302; A9270-GY; J0690; J1885; J2250; J2704; J3010; J3490; J8540